=== PATIENT | male | born 1965 | race Caucasian/White ===

== ENCOUNTER 2016-07-07 14:05 | Emergency (ER) | payer MEDICAID ==
[~2016-07-07] VITALS: Ht 177.8 cm; Wt 75.0 kg
[~2016-07-07 14:05] MED LIST: ATENOLOL; LISINOPRIL; LORA2TAB95 PO
[2016-07-07 14:11] VITALS: BP 148/86
== END 2016-07-07 18:45 | disposition left against medical advice (07) ==
LOC: ER 14:27
DX: R10.9 Unspecified abdominal pain (principal); I10 Essential (primary) hypertension; Z87.19 Personal history of other diseases of the digestive system

== ENCOUNTER 2016-07-25 15:00 | Emergency (ER) | payer MEDICAID ==
[~2016-07-25] VITALS: Ht 175.3 cm; Wt 85.0 kg
[2016-07-25 15:01] VITALS: BP 119/73
== END 2016-07-25 19:31 | disposition left against medical advice (07) ==
LOC: ER 15:01
DX: R10.9 Unspecified abdominal pain (principal); Z53.21 Procedure and treatment not carried out due to patient leaving prior to being seen by health care provider

== ENCOUNTER 2016-08-28 11:05 | Emergency (ER) | payer MEDICAID ==
[~2016-08-28] VITALS: Ht 172.7 cm; Wt 75.0 kg
[2016-08-28] MEDS ORDERED: ONDANSETRON 4MG ODT PO ONE (11:45)
[2016-08-28 11:54] VITALS: BP 148/88
[2016-08-28] MEDS ORDERED: SODIUM CHLORIDE 0.9% 1,000 ML IV ONE (12:16)
[2016-08-28 13:20] LABS: BASOPHILS % 1.1 % (0.0-2.0); EOSINOPHILS % 2.1 % (0.0-5.0); HEMATOCRIT. 41.4 % (42.0-52.0); HEMOGLOBIN. 13.5 g/dL (14.0-18.0); LYMPHOCYTES % 29.1 % (20.0-50.0); MEAN CORPUSCULAR HEMOGLOBIN 29.3 pg (28.0-32.0); MEAN CORPUSCULAR HGB CONC 32.6 g/dL (31.0-37.0); MEAN CORPUSCULAR VOLUME 89.7 fL (80.0-94.0); MEAN PLATELET VOLUME 5.9 fl (7.4-10.4); MONOCYTES % 6.2 % (2.0-8.0); NEUTROPHILS % 61.5 % (40.0-76.0); PLATELET 219 x1000/uL (130-400); RED BLOOD CELL COUNT 4.61 mill/uL (4.7-6.1); RED CELL DISTRIBUTION WIDTH 16.7 % (11.6-14.6); WHITE BLOOD COUNT 6.3 x1000/uL (4.5-11.0)
[2016-08-28 13:28] LABS: PROTHROMBIN TIME 10.8 sec
[2016-08-28 13:32] LABS: ALANINE AMINOTRANSFERASE 27 IU/L (13-61); ALBUMIN 3.8 g/dL (3.4-5.0); ANION GAP 14; CALCIUM 8.5 mg/dL (8.5-10.1); CARBON DIOXIDE 25 mEq/L (21-32); CHLORIDE 108 mEq/L (98-107); ETHANOL BLOOD 279 mg/dL; INDEX HEMOLYSI 1 (1-3); INDEX ICTERIC 1 (1-4); INDEX LIPEMIC 1 (1-3); LIPASE 354 IU/L (73-393); UREA NITROGEN BLOOD 6 mg/dL (7-21); eGFR > 60 mL/min (>60)
[2016-08-28 13:35] LABS: ACETAMINOPHEN < 2 ug/mL (10-30)
[2016-08-28] MEDS ORDERED: ACETAMINOPHEN 500MG TABLET PO ONE (14:00)
== END 2016-08-28 14:44 | disposition home or self-care (01) ==
LOC: ER 11:13
DX: K86.0 Alcohol-induced chronic pancreatitis (principal); F10.129 Alcohol abuse with intoxication, unspecified; M79.641 Pain in right hand; Y90.8 Blood alcohol level of 240 mg/100 ml or more; I10 Essential (primary) hypertension
CPT/HCPCS: 36415; 73130; 80053; 80307; 83690; 85025; 85610; 96360; 99285; G0482; J7030; Q0162

== ENCOUNTER 2016-10-08 12:31 | Emergency (ER) | payer MEDICAID ==
[~2016-10-08] VITALS: Ht 177.8 cm; Wt 80.0 kg
[2016-10-08 15:00] VITALS: BP 142/84
== END 2016-10-08 15:00 | disposition left against medical advice (07) ==
LOC: ER 13:02
DX: F10.129 Alcohol abuse with intoxication, unspecified (principal)
CPT/HCPCS: 82962; 99283

== ENCOUNTER 2016-10-08 15:56 | Emergency (ER) | payer MEDICAID ==
[~2016-10-08] VITALS: Ht 180.3 cm; Wt 79.5 kg
[2016-10-08] MEDS ORDERED: KETOROLAC 60MG/2ML VIAL IM STA (22:19)
[2016-10-08 22:34] LABS: HEMATOCRIT. 35.3 % (42.0-52.0); HEMOGLOBIN. 11.6 g/dL (14.0-18.0); MEAN CORPUSCULAR HEMOGLOBIN 29.4 pg (28.0-32.0); MEAN CORPUSCULAR VOLUME 89.2 fL (80.0-94.0); MEAN PLATELET VOLUME 6.4 fl (7.4-10.4); PLATELET 170 x1000/uL (130-400); RED BLOOD CELL COUNT 3.95 mill/uL (4.7-6.1); RED CELL DISTRIBUTION WIDTH 15.4 % (11.6-14.6)
[2016-10-08 22:39] LABS: CHLORIDE 111 mEq/L (98-107)
[2016-10-08 22:41] LABS: CLARITY URINE CLOUDY (CLEAR); COLOR URINE YELLOW (YELLOW); GLUCOSE URINE NEGATIVE (NEGATIVE); KETONES URINE NEGATIVE (NEGATIVE); LEUKOCYTE ESTERASE URINE NEGATIVE (NEGATIVE); NITRITE URINE NEGATIVE (NEGATIVE); OCCULT BLOOD URINE NEGATIVE (NEGATIVE); PROTEIN URINE NEGATIVE (NEGATIVE); SPECIFIC GRAVITY URINE 1.007 (1.005-1.030); UROBILINOGEN URINE 0.2 E.U./dL (0.2-1.0)
[2016-10-08 22:49] LABS: CARBON DIOXIDE 23 mEq/L (21-32)
[2016-10-08 22:52] LABS: *AMPHETAMINES SCREEN URINE NEGATIVE (NEGATIVE); *BARBITURATES SCREEN URINE NEGATIVE (NEGATIVE); *BENZODIAZEPINES SCREEN URINE PRESUMTIVE POSITIVE (NEGATIVE); *COCAINE SCREEN URINE NEGATIVE (NEGATIVE); CANNABINOID URINE SCREEN NEGATIVE (NEGATIVE); METHADONE URINE SCREEN NEGATIVE (NEGATIVE); OPIATES URINE SCREEN NEGATIVE (NEGATIVE); PHENCYCLIDINE URINE SCREEN NEGATIVE (NEGATIVE)
[2016-10-08 22:53] LABS: ETHANOL BLOOD 346 mg/dL
[2016-10-08 23:19] LABS: PLATELET ESTIMATE NORMAL
[2016-10-09 03:27] VITALS: BP 115/73
== END 2016-10-09 03:57 | disposition home or self-care (01) ==
LOC: ER 15:56
DX: R51 Headache (principal); R47.81 Slurred speech; F10.129 Alcohol abuse with intoxication, unspecified; I10 Essential (primary) hypertension
CPT/HCPCS: 36415; 80053; 80305; 81001; 85025; 96372; 99284; G0482; J1885

== ENCOUNTER 2016-10-09 21:58 | Emergency (ER) | payer MEDICAID ==
[~2016-10-09] VITALS: Ht 175.3 cm; Wt 77.0 kg
[2016-10-09 22:01] VITALS: BP 115/78
== END 2016-10-10 01:52 | disposition left against medical advice (07) ==
LOC: ER 22:21
DX: R10.9 Unspecified abdominal pain (principal); F10.99 Alcohol use, unspecified with unspecified alcohol-induced disorder; Z53.21 Procedure and treatment not carried out due to patient leaving prior to being seen by health care provider

== ENCOUNTER 2016-10-10 04:16 | Emergency (ER) | payer MEDICAID ==
[~2016-10-10] VITALS: Ht 175.3 cm; Wt 77.0 kg
[2016-10-10] MEDS ORDERED: SODIUM CHLORIDE 0.9% 1,000 ML IV ONE (07:45)
[2016-10-10] MEDS ORDERED: ONDANSETRON HCL 4MG/2ML VIAL IV ONE (07:45)
[2016-10-10] MEDS ORDERED: LORAZEPAM 2MG/ML CPJ IV ONE (07:45)
[2016-10-10 07:52] LABS: HEMATOCRIT. 37.1 % (42.0-52.0); HEMOGLOBIN. 12.3 g/dL (14.0-18.0); MEAN CORPUSCULAR HEMOGLOBIN 29.5 pg (28.0-32.0); MEAN CORPUSCULAR VOLUME 88.7 fL (80.0-94.0); PLATELET 210 x1000/uL (130-400); RED BLOOD CELL COUNT 4.19 mill/uL (4.7-6.1); RED CELL DISTRIBUTION WIDTH 15.6 % (11.6-14.6)
[2016-10-10 07:57] LABS: CHLORIDE 108 mEq/L (98-107)
[2016-10-10 08:03] LABS: CARBON DIOXIDE 30 mEq/L (21-32); ETHANOL BLOOD 249 mg/dL
[2016-10-10 08:18] LABS: PLATELET ESTIMATE NORMAL
[2016-10-10] MEDS ORDERED: KETOROLAC 30MG/ML VIAL IV ONE (09:30)
[2016-10-10 12:00] LABS: CLARITY URINE CLEAR (CLEAR); COLOR URINE YELLOW (YELLOW); GLUCOSE URINE NEGATIVE (NEGATIVE); KETONES URINE NEGATIVE (NEGATIVE); LEUKOCYTE ESTERASE URINE NEGATIVE (NEGATIVE); NITRITE URINE NEGATIVE (NEGATIVE); OCCULT BLOOD URINE NEGATIVE (NEGATIVE); PROTEIN URINE NEGATIVE (NEGATIVE); SPECIFIC GRAVITY URINE 1.015 (1.005-1.030); UROBILINOGEN URINE 0.2 E.U./dL (0.2-1.0)
[2016-10-10 12:36] LABS: *AMPHETAMINES SCREEN URINE NEGATIVE (NEGATIVE); *BARBITURATES SCREEN URINE NEGATIVE (NEGATIVE); *BENZODIAZEPINES SCREEN URINE PRESUMTIVE POSITIVE (NEGATIVE); *COCAINE SCREEN URINE NEGATIVE (NEGATIVE); CANNABINOID URINE SCREEN NEGATIVE (NEGATIVE); METHADONE URINE SCREEN NEGATIVE (NEGATIVE); OPIATES URINE SCREEN NEGATIVE (NEGATIVE); PHENCYCLIDINE URINE SCREEN NEGATIVE (NEGATIVE)
[2016-10-10 12:45] VITALS: BP 142/79
[2016-10-10] MEDS ORDERED: KETOROLAC 30MG/ML VIAL IV NR (14:15)
[2016-10-10] MEDS ORDERED: FAMOTIDINE 20MG/2ML VIAL IV SCH (21:00)
== END 2016-10-10 13:00 | disposition home or self-care (01) ==
LOC: ER 07:18
DX: K70.0 Alcoholic fatty liver (principal); F10.239 Alcohol dependence with withdrawal, unspecified; I10 Essential (primary) hypertension; Z59.0 Homelessness
CPT/HCPCS: 36415; 76705; 80053; 80305; 81003; 83690; 85007; 85027; 96361; 96374; 99285; G0482; J1885; J2060; J7030; Z7610

== ENCOUNTER 2016-10-18 17:27 | Emergency (ER) | payer MEDICAID ==
[~2016-10-18] VITALS: Ht 177.8 cm; Wt 85.0 kg
[2016-10-18 17:28] VITALS: BP 140/87
== END 2016-10-18 21:55 | disposition left against medical advice (07) ==
LOC: ER 17:27
DX: R51 Headache (principal); Z53.21 Procedure and treatment not carried out due to patient leaving prior to being seen by health care provider

== ENCOUNTER 2016-10-28 12:56 | Emergency (ER) | payer MEDICAID ==
[~2016-10-28] VITALS: Ht 170.2 cm; Wt 70.0 kg
[2016-10-28 13:00] VITALS: BP 116/76
== END 2016-10-29 04:19 | disposition left against medical advice (07) ==
LOC: ER 18:08
DX: Z53.21 Procedure and treatment not carried out due to patient leaving prior to being seen by health care provider (principal)

== ENCOUNTER 2016-10-31 13:30 | Emergency (ER) | payer MEDICAID ==
[~2016-10-31] VITALS: Ht 177.8 cm; Wt 80.0 kg
[2016-10-31 13:46] VITALS: BP 135/87
== END 2016-10-31 19:57 | disposition left against medical advice (07) ==
LOC: ER 13:50
DX: R10.9 Unspecified abdominal pain (principal); Z53.21 Procedure and treatment not carried out due to patient leaving prior to being seen by health care provider

== ENCOUNTER 2016-11-27 16:27 | Emergency (ER) | payer MEDICAID ==
[~2016-11-27] VITALS: Ht 177.8 cm; Wt 80.0 kg
[2016-11-27] MEDS ORDERED: FAMOTIDINE 20MG/2ML VIAL IV STA (18:57)
[2016-11-27] MEDS ORDERED: SODIUM CHLORIDE 0.9% 1,000 ML IV ONE (18:57)
[2016-11-27 19:18] LABS: EOSINOPHILS % 1.2 % (0.0-5.0); HEMATOCRIT. 37.5 % (42.0-52.0); HEMOGLOBIN. 12.4 g/dL (14.0-18.0); LYMPHOCYTES % 41.5 % (20.0-50.0); MEAN CORPUSCULAR HEMOGLOBIN 29.9 pg (28.0-32.0); MEAN CORPUSCULAR VOLUME 90.7 fL (80.0-94.0); MEAN PLATELET VOLUME 6.3 fl (7.4-10.4); MONOCYTES % 14.7 % (2.0-8.0); NEUTROPHILS % 41.6 % (40.0-76.0); PLATELET 176 x1000/uL (130-400); RED BLOOD CELL COUNT 4.13 mill/uL (4.7-6.1); RED CELL DISTRIBUTION WIDTH 15.7 % (11.6-14.6)
[2016-11-27 19:25] LABS: PROTHROMBIN TIME 10.7 sec
[2016-11-27 19:27] LABS: CLARITY URINE CLEAR (CLEAR); COLOR URINE YELLOW (YELLOW); GLUCOSE URINE NEGATIVE (NEGATIVE); KETONES URINE NEGATIVE (NEGATIVE); LEUKOCYTE ESTERASE URINE NEGATIVE (NEGATIVE); NITRITE URINE NEGATIVE (NEGATIVE); OCCULT BLOOD URINE NEGATIVE (NEGATIVE); PROTEIN URINE NEGATIVE (NEGATIVE); SPECIFIC GRAVITY URINE 1.009 (1.005-1.030); UROBILINOGEN URINE 0.2 E.U./dL (0.2-1.0)
[2016-11-27 19:33] LABS: CARBON DIOXIDE 24 mEq/L (21-32); CHLORIDE 108 mEq/L (98-107); ETHANOL BLOOD 298 mg/dL
[2016-11-27] MEDS ORDERED: KETOROLAC 15MG/ML VIAL IV ONE (20:15)
[2016-11-27] MEDS ORDERED: CYANOCOBALAMIN 1000MCG/ML VIAL IM ONE (20:45)
[2016-11-28] MEDS ORDERED: DICYCLOMINE 10 MG/5 ML ORAL SYR PO STA (01:32)
[2016-11-28] MEDS ORDERED: MAGNESIUM/ALUMINUM HYDROXIDE/SIMETHICONE 30ML UDC PO STA (01:32)
[2016-11-28] MEDS ORDERED: VISCOUS LIDOCAINE 2% 15 ML UDC PO STA (01:32)
[2016-11-28] MEDS ORDERED: LORAZEPAM 2MG/ML CPJ IV ONE (01:45)
[2016-11-28 06:16] VITALS: BP 149/96
== END 2016-11-28 06:21 | disposition home or self-care (01) ==
LOC: ER 16:30
DX: K29.20 Alcoholic gastritis without bleeding (principal); F10.10 Alcohol abuse, uncomplicated; I10 Essential (primary) hypertension; Y90.8 Blood alcohol level of 240 mg/100 ml or more
CPT/HCPCS: 36415; 80053; 81003; 83690; 85025; 85610; 96361; 96372; 96374; 96375; 99284; G0482; J1885; J2060; J3420; J3490; J7030; Z7610

== ENCOUNTER 2017-01-27 13:36 | Emergency (ER) | payer MEDICAID ==
[~2017-01-27] VITALS: Ht 177.8 cm; Wt 80.0 kg
[2017-01-27 13:38] VITALS: BP 118/70
== END 2017-01-27 18:41 | disposition left against medical advice (07) ==
LOC: ER 13:43
DX: F10.10 Alcohol abuse, uncomplicated (principal); Z53.21 Procedure and treatment not carried out due to patient leaving prior to being seen by health care provider

== ENCOUNTER 2017-02-18 17:53 | Emergency (ER) | payer MEDICAID ==
[~2017-02-18] VITALS: Ht 180.3 cm; Wt 79.0 kg
[2017-02-18 17:55] VITALS: BP 125/85
== END 2017-02-18 20:34 | disposition left against medical advice (07) ==
LOC: ER 18:15
DX: Z53.21 Procedure and treatment not carried out due to patient leaving prior to being seen by health care provider (principal)

== ENCOUNTER 2017-03-21 10:34 | Emergency (ER) | payer MEDICAID ==
[~2017-03-21] VITALS: Ht 175.3 cm; Wt 75.0 kg
[2017-03-21] MEDS ORDERED: SODIUM CHLORIDE 0.9% 1,000 ML IV ONE (12:34)
[2017-03-21] MEDS ORDERED: ONDANSETRON HCL 4MG/2ML VIAL IV STA (12:34)
[2017-03-21] MEDS ORDERED: KETOROLAC 30MG/ML VIAL IV STA (12:34)
[2017-03-21 12:52] LABS: BASOPHILS % 0.8 % (0.0-2.0); HEMATOCRIT. 41.5 % (42.0-52.0); HEMOGLOBIN. 13.4 g/dL (14.0-18.0); LYMPHOCYTES % 32.6 % (20.0-50.0); MEAN CORPUSCULAR HEMOGLOBIN 30.4 pg (28.0-32.0); MEAN CORPUSCULAR VOLUME 94.4 fL (80.0-94.0); MONOCYTES % 11.7 % (2.0-8.0); NEUTROPHILS % 53.9 % (40.0-76.0); PLATELET 53 x1000/uL (130-400); RED CELL DISTRIBUTION WIDTH 15.3 % (11.6-14.6)
[2017-03-21 13:12] LABS: CARBON DIOXIDE 28 mEq/L (21-32); CHLORIDE 106 mEq/L (98-107)
[2017-03-21 13:25] LABS: ETHANOL BLOOD 321 mg/dL
[2017-03-21] MEDS ORDERED: IOHEXOL-300 100 ML BOTTLE ONE (14:48)
[2017-03-21 17:03] LABS: CLARITY URINE CLEAR (CLEAR); COLOR URINE YELLOW (YELLOW); GLUCOSE URINE NEGATIVE (NEGATIVE); KETONES URINE TRACE (NEGATIVE); LEUKOCYTE ESTERASE URINE NEGATIVE (NEGATIVE); NITRITE URINE NEGATIVE (NEGATIVE); OCCULT BLOOD URINE TRACE (NEGATIVE); PROTEIN URINE 2+ (NEGATIVE); SPECIFIC GRAVITY URINE 1.072 (1.005-1.030)
[2017-03-21] MEDS ORDERED: LORAZEPAM 1MG TABLET PO ONE (19:45)
[2017-03-21 23:42] VITALS: BP 124/71
== END 2017-03-21 23:45 | disposition home or self-care (01) ==
LOC: ER 10:42
DX: K85.90 Acute pancreatitis without necrosis or infection, unspecified (principal); R11.2 Nausea with vomiting, unspecified; R10.9 Unspecified abdominal pain; K76.0 Fatty (change of) liver, not elsewhere classified; F10.20 Alcohol dependence, uncomplicated; I10 Essential (primary) hypertension; Y90.8 Blood alcohol level of 240 mg/100 ml or more
CPT/HCPCS: 36415; 74177; 80053; 81001; 83690; 85025; 96374; 96375; 99285; G0482; J1885; J2405; J7030; Q9967; Z7610

== ENCOUNTER 2017-04-17 20:39 | Emergency (ER) | payer MEDICAID ==
[~2017-04-17] VITALS: Ht 182.9 cm; Wt 79.0 kg
[2017-04-18] MEDS ORDERED: KETOROLAC 30MG/ML VIAL IV ONE (00:45)
[2017-04-18] MEDS ORDERED: METOCLOPRAMIDE HCL 10MG/2ML VIAL IV ONE (00:45)
[2017-04-18] MEDS ORDERED: FOLIC ACID 1 MG, THIAMINE HCL 100 MG, MVI, ADULT NO.1 10 ML in SODIUM CHLORIDE 0.9% 1,0... IV ONE ×4 (01:00)
[2017-04-18 02:55] LABS: CLARITY URINE CLEAR (CLEAR); COLOR URINE YELLOW (YELLOW); KETONES URINE NEGATIVE (NEGATIVE); LEUKOCYTE ESTERASE URINE NEGATIVE (NEGATIVE); NITRITE URINE NEGATIVE (NEGATIVE); OCCULT BLOOD URINE NEGATIVE (NEGATIVE); PROTEIN URINE NEGATIVE (NEGATIVE); SPECIFIC GRAVITY URINE 1.011 (1.005-1.030); UROBILINOGEN URINE 0.2 E.U./dL (0.2-1.0)
[2017-04-18 03:04] LABS: *AMPHETAMINES SCREEN URINE NEGATIVE (NEGATIVE); *BARBITURATES SCREEN URINE NEGATIVE (NEGATIVE); *BENZODIAZEPINES SCREEN URINE NEGATIVE (NEGATIVE); *COCAINE SCREEN URINE NEGATIVE (NEGATIVE); CANNABINOID URINE SCREEN NEGATIVE (NEGATIVE); METHADONE URINE SCREEN NEGATIVE (NEGATIVE); OPIATES URINE SCREEN NEGATIVE (NEGATIVE); PHENCYCLIDINE URINE SCREEN NEGATIVE (NEGATIVE)
[2017-04-18 05:01] VITALS: BP 108/70
== END 2017-04-18 06:55 | disposition home or self-care (01) ==
LOC: ER 21:34
DX: F10.129 Alcohol abuse with intoxication, unspecified (principal); F17.210 Nicotine dependence, cigarettes, uncomplicated; Y90.8 Blood alcohol level of 240 mg/100 ml or more; Z87.19 Personal history of other diseases of the digestive system
CPT/HCPCS: 36415; 80305; 81003; 96365; 96375; 99284; G0482; J1885; J2765; J3411; J3490; Z7610; J7030

== ENCOUNTER 2017-04-25 19:42 | Emergency (ER) | payer MEDICAID ==
[~2017-04-25] VITALS: Ht 180.3 cm; Wt 80.0 kg
[2017-04-25] MEDS ORDERED: KETOROLAC 60MG/2ML VIAL IM ONE (20:45)
[2017-04-25] MEDS ORDERED: TETANUS, DIPHTHERIA, PERTUSSIS VAC/PF 0.5ML (>7YR OLD) IM ONE (20:45)
[2017-04-25 20:56] VITALS: BP 107/66
== END 2017-04-25 21:22 | disposition home or self-care (01) ==
LOC: ER 20:17
DX: F10.229 Alcohol dependence with intoxication, unspecified (principal); F10.239 Alcohol dependence with withdrawal, unspecified; Y90.9 Presence of alcohol in blood, level not specified; S50.812A Abrasion of left forearm, initial encounter; W17.89XA Other fall from one level to another, initial encounter; Y93.39 Activity, other involving climbing, rappelling and jumping off; Y92.522 Railway station as the place of occurrence of the external cause; I10 Essential (primary) hypertension; Z23 Encounter for immunization; Z87.19 Personal history of other diseases of the digestive system
CPT/HCPCS: 90471; 90715; 96372; 99284; J1885; Z7610

== ENCOUNTER 2017-04-25 21:37 | Emergency (ER) | payer MEDICAID ==
[~2017-04-25] VITALS: Ht 172.7 cm; Wt 83.0 kg
[2017-04-25 23:11] VITALS: BP 130/85
== END 2017-04-26 05:18 | disposition left against medical advice (07) ==
LOC: ER 04-26 01:01
DX: Z53.21 Procedure and treatment not carried out due to patient leaving prior to being seen by health care provider (principal)

== ENCOUNTER 2017-06-01 15:33 | Emergency (ER) | payer MEDICAID ==
[~2017-06-01] VITALS: Ht 177.8 cm; Wt 87.0 kg
[2017-06-01 15:40] VITALS: BP 128/66
== END 2017-06-01 19:20 | disposition left against medical advice (07) ==
LOC: ER 15:33
DX: R07.9 Chest pain, unspecified (principal); Z53.21 Procedure and treatment not carried out due to patient leaving prior to being seen by health care provider
CPT/HCPCS: 93005

== ENCOUNTER 2017-06-21 22:25 | Emergency (ER) | payer MEDICAID ==
[~2017-06-21] VITALS: Ht 167.6 cm; Wt 72.0 kg
[2017-06-22] MEDS ORDERED: ACETAMINOPHEN WITH CODEINE 300/30MG TABLET PO ONE (06:30)
[2017-06-22] MEDS ORDERED: ONDANSETRON 4MG ODT PO ONE (06:30)
[2017-06-22 06:52] LABS: BASOPHILS % 0.6 % (0.0-2.0); HEMATOCRIT. 37.3 % (42.0-52.0); HEMOGLOBIN. 12.1 g/dL (14.0-18.0); LYMPHOCYTES % 38.3 % (20.0-50.0); MEAN CORPUSCULAR HEMOGLOBIN 29.3 pg (28.0-32.0); MEAN CORPUSCULAR VOLUME 90.4 fL (80.0-94.0); MEAN PLATELET VOLUME 6.9 fl (7.4-10.4); MONOCYTES % 13.8 % (2.0-8.0); NEUTROPHILS % 46.3 % (40.0-76.0); PLATELET 60 x1000/uL (130-400); RED BLOOD CELL COUNT 4.12 mill/uL (4.7-6.1); RED CELL DISTRIBUTION WIDTH 14.4 % (11.6-14.6)
[2017-06-22 07:05] LABS: CHLORIDE 108 mEq/L (98-107); ETHANOL BLOOD 266 mg/dL
[2017-06-22 08:22] LABS: *AMPHETAMINES SCREEN URINE NEGATIVE (NEGATIVE); *BARBITURATES SCREEN URINE NEGATIVE (NEGATIVE); *BENZODIAZEPINES SCREEN URINE NEGATIVE (NEGATIVE); *COCAINE SCREEN URINE NEGATIVE (NEGATIVE); CANNABINOID URINE SCREEN NEGATIVE (NEGATIVE); METHADONE URINE SCREEN NEGATIVE (NEGATIVE); OPIATES URINE SCREEN NEGATIVE (NEGATIVE); PHENCYCLIDINE URINE SCREEN NEGATIVE (NEGATIVE)
[2017-06-22] MEDS ORDERED: IBUPROFEN 600MG TABLET PO ONE (08:45)
[2017-06-22 09:19] VITALS: BP 154/103
== END 2017-06-22 09:24 | disposition home or self-care (01) ==
LOC: ER 22:28
DX: S00.83XA Contusion of other part of head, initial encounter (principal); S40.011A Contusion of right shoulder, initial encounter; D61.818 Other pancytopenia; F10.10 Alcohol abuse, uncomplicated; Z79.899 Other long term (current) drug therapy; I10 Essential (primary) hypertension; W06.XXXA Fall from bed, initial encounter; Y93.89 Activity, other specified; Y92.89 Other specified places as the place of occurrence of the external cause; Y99.8 Other external cause status
CPT/HCPCS: 36415; 70450; 73030; 80053; 80305; 85025; 99285; G0482; Q0162; Z7610

== ENCOUNTER 2017-08-05 19:16 | Emergency (ER) | payer MEDICAID ==
[~2017-08-05] VITALS: Ht 175.3 cm; Wt 73.0 kg
[2017-08-05] MEDS ORDERED: FOLIC ACID 1 MG, THIAMINE HCL 100 MG, MVI, ADULT NO.1 10 ML in DEXTROSE 5% WATER 1,000 ML IV ONE ×4 (20:00)
[2017-08-05] MEDS ORDERED: ACETAMINOPHEN 325MG TABLET PO ONE (20:00)
[2017-08-06 00:15] VITALS: BP 138/88
== END 2017-08-06 00:15 | disposition home or self-care (01) ==
LOC: ER 19:16
DX: R51 Headache (principal); F10.129 Alcohol abuse with intoxication, unspecified; Y90.8 Blood alcohol level of 240 mg/100 ml or more; R25.1 Tremor, unspecified; M25.511 Pain in right shoulder
CPT/HCPCS: 36415; 96365; 96366; 99285; G0482; J3411; J3490; J7070; Z7610

== ENCOUNTER 2017-08-06 01:22 | Emergency (ER) | payer MEDICAID ==
[~2017-08-06] VITALS: Ht 180.3 cm; Wt 79.0 kg
[2017-08-06 01:45] VITALS: BP 141/88
[2017-08-06] MEDS ORDERED: IBUPROFEN 400MG TABLET PO ONE (01:45)
== END 2017-08-06 03:50 | disposition left against medical advice (07) ==
LOC: ER 01:22
DX: M25.511 Pain in right shoulder (principal); I10 Essential (primary) hypertension
CPT/HCPCS: 99282

== ENCOUNTER 2017-08-06 07:38 | Emergency (ER) | payer MEDICAID ==
[~2017-08-06] VITALS: Ht 180.3 cm; Wt 74.0 kg
[2017-08-06 07:54] VITALS: BP 146/99
== END 2017-08-06 08:07 | disposition left against medical advice (07) ==
LOC: ER 08:04
DX: Z53.21 Procedure and treatment not carried out due to patient leaving prior to being seen by health care provider (principal); I10 Essential (primary) hypertension; R56.9 Unspecified convulsions

== ENCOUNTER 2017-08-13 16:47 | Emergency (ER) | payer MEDICAID ==
[~2017-08-13] VITALS: Ht 177.8 cm; Wt 80.0 kg
[2017-08-13 18:55] LABS: CLARITY URINE CLEAR (CLEAR); COLOR URINE YELLOW (YELLOW); KETONES URINE NEGATIVE (NEGATIVE); LEUKOCYTE ESTERASE URINE NEGATIVE (NEGATIVE); NITRITE URINE NEGATIVE (NEGATIVE); OCCULT BLOOD URINE NEGATIVE (NEGATIVE); PROTEIN URINE NEGATIVE (NEGATIVE); SPECIFIC GRAVITY URINE 1.008 (1.005-1.030); UROBILINOGEN URINE 0.2 E.U./dL (0.2-1.0)
[2017-08-13 19:15] LABS: *AMPHETAMINES SCREEN URINE NEGATIVE (NEGATIVE); *BARBITURATES SCREEN URINE NEGATIVE (NEGATIVE); *BENZODIAZEPINES SCREEN URINE PRESUMTIVE POSITIVE (NEGATIVE); *COCAINE SCREEN URINE NEGATIVE (NEGATIVE); CANNABINOID URINE SCREEN NEGATIVE (NEGATIVE); METHADONE URINE SCREEN NEGATIVE (NEGATIVE); PHENCYCLIDINE URINE SCREEN NEGATIVE (NEGATIVE)
[2017-08-13 19:16] LABS: OPIATES URINE SCREEN NEGATIVE (NEGATIVE)
[2017-08-13 19:54] LABS: BASOPHILS % 0.3 % (0.0-2.0); EOSINOPHILS % 0.9 % (0.0-5.0); HEMATOCRIT. 40.2 % (42.0-52.0); HEMOGLOBIN. 13.4 g/dL (14.0-18.0); LYMPHOCYTES % 43.9 % (20.0-50.0); MEAN CORPUSCULAR HEMOGLOBIN 29.8 pg (28.0-32.0); MEAN CORPUSCULAR VOLUME 89.2 fL (80.0-94.0); MONOCYTES % 7.4 % (2.0-8.0); NEUTROPHILS % 47.5 % (40.0-76.0); RED BLOOD CELL COUNT 4.51 mill/uL (4.7-6.1); RED CELL DISTRIBUTION WIDTH 16.1 % (11.6-14.6)
[2017-08-13 19:58] LABS: CHLORIDE 109 mEq/L (98-107)
[2017-08-13 20:08] LABS: PLATELET 38 x1000/uL (130-400)
[2017-08-13 20:28] LABS: ETHANOL BLOOD 411 mg/dL
[2017-08-14 06:00] VITALS: BP 156/81
== END 2017-08-14 07:10 | disposition home or self-care (01) ==
LOC: ER 16:59
DX: F10.229 Alcohol dependence with intoxication, unspecified (principal); S09.90XA Unspecified injury of head, initial encounter; I67.82 Cerebral ischemia; F17.200 Nicotine dependence, unspecified, uncomplicated; Z59.0 Homelessness; R29.6 Repeated falls; I10 Essential (primary) hypertension; X58.XXXA Exposure to other specified factors, initial encounter; Y93.9 Activity, unspecified
CPT/HCPCS: 36415; 70450; 80053; 80305; 80307; 80329; 81003; 82962; 85025; 99285; G0482; Z7610

== ENCOUNTER 2017-10-19 11:42 | Emergency (ER) | payer MEDICAID ==
[~2017-10-19] VITALS: Ht 170.2 cm; Wt 75.0 kg
[2017-10-19] MEDS ORDERED: KETOROLAC 30MG/ML VIAL IV STA (14:17)
[2017-10-19] MEDS ORDERED: SODIUM CHLORIDE 0.9% 1,000 ML IV ONE (14:17)
[2017-10-19] MEDS ORDERED: CHLORDIAZEPOXIDE 25MG CAPSULE PO ONE (14:30)
[2017-10-19 14:55] LABS: HEMATOCRIT. 36.6 % (42.0-52.0); HEMOGLOBIN. 12.4 g/dL (14.0-18.0); MEAN CORPUSCULAR HEMOGLOBIN 31.6 pg (28.0-32.0); MEAN CORPUSCULAR VOLUME 93.5 fL (80.0-94.0); MEAN PLATELET VOLUME 7.1 fl (7.4-10.4); PLATELET 145 x1000/uL (130-400); RED BLOOD CELL COUNT 3.91 mill/uL (4.7-6.1); RED CELL DISTRIBUTION WIDTH 15.1 % (11.6-14.6)
[2017-10-19 15:01] LABS: CHLORIDE 106 mEq/L (98-107)
[2017-10-19 15:05] LABS: ETHANOL BLOOD 119 mg/dL
[2017-10-19 15:24] LABS: PLATELET ESTIMATE NORMAL
[2017-10-19 16:14] VITALS: BP 120/74
[2017-10-19 19:05] LABS: *AMPHETAMINES SCREEN URINE NEGATIVE (NEGATIVE); *BARBITURATES SCREEN URINE NEGATIVE (NEGATIVE); *BENZODIAZEPINES SCREEN URINE PRESUMTIVE POSITIVE (NEGATIVE); *COCAINE SCREEN URINE NEGATIVE (NEGATIVE); METHADONE URINE SCREEN NEGATIVE (NEGATIVE)
[2017-10-19 19:06] LABS: CANNABINOID URINE SCREEN NEGATIVE (NEGATIVE); OPIATES URINE SCREEN NEGATIVE (NEGATIVE); PHENCYCLIDINE URINE SCREEN NEGATIVE (NEGATIVE)
== END 2017-10-19 16:39 | disposition home or self-care (01) ==
LOC: ER 13:10
DX: T51.0X1A Toxic effect of ethanol, accidental (unintentional), initial encounter (principal); R07.89 Other chest pain; I10 Essential (primary) hypertension; R94.31 Abnormal electrocardiogram [ECG] [EKG]; Y90.5 Blood alcohol level of 100-119 mg/100 ml; Y92.018 Other place in single-family (private) house as the place of occurrence of the external cause
CPT/HCPCS: 36415; 71045; 80053; 80305; 84484; 85025; 93005; 96361; 96374; 99285; G0482; J1885; J7030

== ENCOUNTER 2017-10-25 12:09 | Emergency (ER) | payer MEDICAID ==
[~2017-10-25] VITALS: Ht 177.8 cm; Wt 80.0 kg
[2017-10-25 18:49] VITALS: BP 109/77
== END 2017-10-25 19:31 | disposition home or self-care (01) ==
LOC: ER 12:09
DX: F10.229 Alcohol dependence with intoxication, unspecified (principal); Y90.8 Blood alcohol level of 240 mg/100 ml or more; I10 Essential (primary) hypertension; Z91.19 Patient's noncompliance with other medical treatment and regimen; Z91.81 History of falling; Z78.1 Physical restraint status; Z87.19 Personal history of other diseases of the digestive system
CPT/HCPCS: 36415; 99283; G0482; Z7610

== ENCOUNTER 2017-11-05 18:43 | Emergency (ER) | payer MEDICAID ==
[~2017-11-05] VITALS: Ht 172.7 cm; Wt 70.0 kg
[2017-11-05 21:30] VITALS: BP 121/77
== END 2017-11-05 21:30 | disposition home or self-care (01) ==
LOC: ER 18:43
DX: F10.229 Alcohol dependence with intoxication, unspecified (principal); R41.82 Altered mental status, unspecified; I10 Essential (primary) hypertension; Y90.9 Presence of alcohol in blood, level not specified
CPT/HCPCS: 99283

== ENCOUNTER 2017-11-07 15:23 | Emergency (ER) | payer MEDICAID ==
[~2017-11-07] VITALS: Ht 180.3 cm; Wt 88.5 kg
[2017-11-07 15:55] VITALS: BP 135/78
== END 2017-11-07 16:34 | disposition left against medical advice (07) ==
LOC: ER 15:33
DX: R51 Headache (principal); Z53.21 Procedure and treatment not carried out due to patient leaving prior to being seen by health care provider

== ENCOUNTER 2017-11-11 11:12 | Emergency (ER) | payer MEDICAID ==
[~2017-11-11] VITALS: Ht 175.3 cm; Wt 85.0 kg
[2017-11-11 11:13] VITALS: BP 133/88
== END 2017-11-11 12:06 | disposition left against medical advice (07) ==
LOC: ER 11:21
DX: R07.89 Other chest pain (principal); Z53.21 Procedure and treatment not carried out due to patient leaving prior to being seen by health care provider
CPT/HCPCS: 93005; 99283

== ENCOUNTER 2017-11-11 18:05 | Emergency (ER) | payer MEDICAID ==
[~2017-11-11] VITALS: Ht 172.7 cm; Wt 87.0 kg
[2017-11-11] MEDS ORDERED: FAMOTIDINE 20MG/2ML VIAL IV STA (20:42)
[2017-11-11] MEDS ORDERED: SODIUM CHLORIDE 0.9% 1,000 ML IV ONE (20:42)
[2017-11-11] MEDS ORDERED: KETOROLAC 30MG/ML VIAL IV STA (20:42)
[2017-11-11] MEDS ORDERED: ONDANSETRON HCL 4MG/2ML VIAL IV STA (20:42)
[2017-11-11 21:42] LABS: CLARITY URINE CLEAR (CLEAR); COLOR URINE YELLOW (YELLOW); KETONES URINE NEGATIVE (NEGATIVE); LEUKOCYTE ESTERASE URINE NEGATIVE (NEGATIVE); NITRITE URINE NEGATIVE (NEGATIVE); OCCULT BLOOD URINE NEGATIVE (NEGATIVE); PROTEIN URINE NEGATIVE (NEGATIVE); SPECIFIC GRAVITY URINE 1.006 (1.005-1.030); UROBILINOGEN URINE 0.2 E.U./dL (0.2-1.0)
[2017-11-11 21:56] LABS: CHLORIDE 110 mEq/L (98-107)
[2017-11-11 22:02] LABS: *AMPHETAMINES SCREEN URINE NEGATIVE (NEGATIVE); *BARBITURATES SCREEN URINE NEGATIVE (NEGATIVE); *BENZODIAZEPINES SCREEN URINE PRESUMTIVE POSITIVE (NEGATIVE); *COCAINE SCREEN URINE NEGATIVE (NEGATIVE); METHADONE URINE SCREEN NEGATIVE (NEGATIVE)
[2017-11-11 22:03] LABS: CANNABINOID URINE SCREEN NEGATIVE (NEGATIVE); OPIATES URINE SCREEN NEGATIVE (NEGATIVE); PHENCYCLIDINE URINE SCREEN NEGATIVE (NEGATIVE)
[2017-11-11 22:17] LABS: ETHANOL BLOOD 385 mg/dL
[2017-11-11 22:39] LABS: BASOPHILS % 0.3 % (0.0-2.0); EOSINOPHILS % 2.7 % (0.0-5.0); HEMATOCRIT. 35.7 % (42.0-52.0); HEMOGLOBIN. 11.6 g/dL (14.0-18.0); LYMPHOCYTES % 43.1 % (20.0-50.0); MEAN CORPUSCULAR HEMOGLOBIN 30.1 pg (28.0-32.0); MEAN PLATELET VOLUME 6.3 fl (7.4-10.4); MONOCYTES % 9.4 % (2.0-8.0); NEUTROPHILS % 44.5 % (40.0-76.0); RED BLOOD CELL COUNT 3.84 mill/uL (4.7-6.1); RED CELL DISTRIBUTION WIDTH 14.3 % (11.6-14.6)
[2017-11-11 22:52] LABS: PLATELET 37 x1000/uL (130-400)
[2017-11-12 06:53] VITALS: BP 147/81
[2017-11-12] MEDS ORDERED: LORAZEPAM 2MG/ML CPJ IV ONE (07:15)
[2017-11-12] MEDS ORDERED: ACETAMINOPHEN 325MG TABLET PO ONE (07:15)
== END 2017-11-12 07:55 | disposition home or self-care (01) ==
LOC: ER 18:05
DX: R10.13 Epigastric pain (principal); F10.239 Alcohol dependence with withdrawal, unspecified; I10 Essential (primary) hypertension; D69.6 Thrombocytopenia, unspecified; R25.1 Tremor, unspecified; Z87.19 Personal history of other diseases of the digestive system; Z79.899 Other long term (current) drug therapy; Y90.8 Blood alcohol level of 240 mg/100 ml or more
CPT/HCPCS: 36415; 80053; 80305; 81003; 83690; 85025; 96361; 96374; 96375; 99284; G0482; J1885; J2060; J2405; J3490; J7030; Z7610

== ENCOUNTER 2017-11-30 10:51 | Emergency (ER) | payer MEDICAID ==
[~2017-11-30] VITALS: Ht 172.7 cm; Wt 78.0 kg
[2017-11-30] MEDS ORDERED: SODIUM CHLORIDE 0.9% 1,000 ML IV ONE (11:10)
[2017-11-30] MEDS ORDERED: ACETAMINOPHEN 325MG TABLET PO ONE (11:15)
[2017-11-30 11:46] LABS: CHLORIDE 105 mEq/L (98-107)
[2017-11-30 11:47] LABS: BASOPHILS % 0.5 % (0.0-2.0); EOSINOPHILS % 0.8 % (0.0-5.0); HEMATOCRIT. 35.7 % (42.0-52.0); HEMOGLOBIN. 11.8 g/dL (14.0-18.0); LYMPHOCYTES % 30.7 % (20.0-50.0); MEAN CORPUSCULAR HEMOGLOBIN 30.2 pg (28.0-32.0); MEAN CORPUSCULAR VOLUME 91.3 fL (80.0-94.0); MEAN PLATELET VOLUME 6.5 fl (7.4-10.4); MONOCYTES % 8.9 % (2.0-8.0); NEUTROPHILS % 59.1 % (40.0-76.0); RED BLOOD CELL COUNT 3.91 mill/uL (4.7-6.1); RED CELL DISTRIBUTION WIDTH 14.4 % (11.6-14.6)
[2017-11-30 12:15] LABS: ETHANOL BLOOD 387 mg/dL
[2017-11-30 13:15] VITALS: BP 130/78
[2017-12-01 09:16] LABS: PLATELET 50 x1000/uL (130-400)
== END 2017-11-30 14:49 | disposition home or self-care (01) ==
LOC: ER 11:00
DX: F10.129 Alcohol abuse with intoxication, unspecified (principal); Y90.8 Blood alcohol level of 240 mg/100 ml or more; K86.0 Alcohol-induced chronic pancreatitis; D69.6 Thrombocytopenia, unspecified; D64.9 Anemia, unspecified; I10 Essential (primary) hypertension
CPT/HCPCS: 36415; 70450; 80053; 83690; 85025; 99285; G0482; J7030; Z7610

== ENCOUNTER 2017-12-14 10:57 | Emergency (ER) | payer MEDICAID ==
[~2017-12-14] VITALS: Ht 172.7 cm; Wt 78.0 kg
[2017-12-14 10:59] VITALS: BP 120/80
== END 2017-12-14 14:08 | disposition left against medical advice (07) ==
LOC: ER 10:57
DX: Z53.21 Procedure and treatment not carried out due to patient leaving prior to being seen by health care provider (principal)

== ENCOUNTER 2018-01-13 14:02 | Emergency (ER) | payer MEDICAID ==
[~2018-01-13] VITALS: Ht 172.7 cm; Wt 75.0 kg
[2018-01-13 15:30] VITALS: BP 126/87
[2018-01-13 16:22] LABS: BASOPHILS % 0.5 % (0.0-2.0); EOSINOPHILS % 1.6 % (0.0-5.0); HEMATOCRIT. 39.8 % (42.0-52.0); LYMPHOCYTES % 35.6 % (20.0-50.0); MEAN CORPUSCULAR VOLUME 91.8 fL (80.0-94.0); MEAN PLATELET VOLUME 6.7 fl (7.4-10.4); NEUTROPHILS % 54.3 % (40.0-76.0); PLATELET 67 x1000/uL (130-400); RED BLOOD CELL COUNT 4.33 mill/uL (4.7-6.1); RED CELL DISTRIBUTION WIDTH 15.1 % (11.6-14.6)
[2018-01-13 16:26] LABS: CHLORIDE 110 mEq/L (98-107)
== END 2018-01-13 17:07 | disposition home or self-care (01) ==
LOC: ER 14:11
DX: R10.32 Left lower quadrant pain (principal); I10 Essential (primary) hypertension; Z79.899 Other long term (current) drug therapy
CPT/HCPCS: 36415; 80053; 83690; 85025; 99284

== ENCOUNTER 2018-01-15 12:56 | Emergency (ER) | payer MEDICAID ==
[~2018-01-15] VITALS: Ht 172.7 cm; Wt 78.0 kg
[2018-01-15 13:09] VITALS: BP 142/89
== END 2018-01-15 14:02 | disposition left against medical advice (07) ==
LOC: ER 13:05
DX: Z53.21 Procedure and treatment not carried out due to patient leaving prior to being seen by health care provider (principal)

== ENCOUNTER 2018-01-15 17:50 | Emergency (ER) | payer MEDICAID ==
[~2018-01-15] VITALS: Ht 172.7 cm; Wt 68.0 kg
[2018-01-15 21:38] VITALS: BP 122/77
== END 2018-01-15 23:00 | disposition home or self-care (01) ==
LOC: ER 17:50
DX: T51.0X1A Toxic effect of ethanol, accidental (unintentional), initial encounter (principal); R41.82 Altered mental status, unspecified; I10 Essential (primary) hypertension; Y90.8 Blood alcohol level of 240 mg/100 ml or more; Y92.488 Other paved roadways as the place of occurrence of the external cause
CPT/HCPCS: 36415; 99283; G0482

== ENCOUNTER 2018-02-01 19:52 | Emergency (ER) | payer MEDICAID ==
[~2018-02-01] VITALS: Ht 177.8 cm; Wt 81.0 kg
[2018-02-02 00:19] LABS: HEMATOCRIT. 37.9 % (42.0-52.0); HEMOGLOBIN. 12.5 g/dL (14.0-18.0); MEAN CORPUSCULAR HEMOGLOBIN 30.1 pg (28.0-32.0); MEAN CORPUSCULAR VOLUME 91.4 fL (80.0-94.0); MEAN PLATELET VOLUME 6.5 fl (7.4-10.4); PLATELET 194 x1000/uL (130-400); RED BLOOD CELL COUNT 4.14 mill/uL (4.7-6.1); RED CELL DISTRIBUTION WIDTH 15.2 % (11.6-14.6)
[2018-02-02 00:27] LABS: CHLORIDE 106 mEq/L (98-107)
[2018-02-02 00:28] LABS: PROTHROMBIN TIME 10.3 sec (9.1-11.1)
[2018-02-02 03:04] LABS: PLATELET ESTIMATE NORMAL
[2018-02-02 04:40] VITALS: BP 119/71
[2018-02-26] MEDS ORDERED: ACET-2708 PO (10:06)
[2018-02-26] MEDS ORDERED: PROT40 PO (10:06)
[2018-02-26] MEDS ORDERED: SUCR1TAB30 MT (10:06)
[2018-02-26] MEDS ORDERED: AMLO10TA80 MT (10:06)
[2018-02-26] MEDS ORDERED: FAMO40TA70 MT (10:06)
== END 2018-02-02 04:45 | disposition home or self-care (01) ==
LOC: ER 19:52
DX: K85.90 Acute pancreatitis without necrosis or infection, unspecified (principal); I10 Essential (primary) hypertension; Z79.899 Other long term (current) drug therapy
CPT/HCPCS: 36415; 99284

== ENCOUNTER 2018-03-16 05:21 | Emergency (ER) | payer MEDICAID, OTHER ==
[~2018-03-16] VITALS: Ht 177.8 cm; Wt 68.0 kg
[~2018-03-16 05:21] MED LIST changes: +ACET-2708 PO; -ATENOLOL; -LISINOPRIL; +PROT40 PO; +SUCR1TAB30 MT
[2018-03-16 05:41] VITALS: BP 149/60
[2018-03-16] MEDS ORDERED: LORAZEPAM 1MG TABLET PO ONE (06:30)
== END 2018-03-16 07:14 | disposition home or self-care (01) ==
LOC: ER 05:21
DX: F10.239 Alcohol dependence with withdrawal, unspecified (principal); Y90.9 Presence of alcohol in blood, level not specified
CPT/HCPCS: 99283

== ENCOUNTER 2018-03-21 14:10 | Emergency (ER) | payer MEDICAID ==
[~2018-03-21] VITALS: Ht 182.9 cm; Wt 75.0 kg
[2018-03-21] MEDS ORDERED: FOLIC ACID 1 MG, THIAMINE HCL 100 MG, MVI, ADULT NO.1 10 ML in DEXTROSE 5% WATER 1,000 ML IV ONE ×4 (14:45)
[2018-03-21 15:17] LABS: CHLORIDE 108 mEq/L (98-107)
[2018-03-21 15:18] LABS: BASOPHILS % 0.3 % (0.0-2.0); EOSINOPHILS % 0.4 % (0.0-5.0); HEMATOCRIT. 36.6 % (42.0-52.0); HEMOGLOBIN. 12.1 g/dL (14.0-18.0); LYMPHOCYTES % 37.8 % (20.0-50.0); MEAN CORPUSCULAR HEMOGLOBIN 29.6 pg (28.0-32.0); MEAN CORPUSCULAR VOLUME 89.5 fL (80.0-94.0); MEAN PLATELET VOLUME 7.2 fl (7.4-10.4); MONOCYTES % 10.2 % (2.0-8.0); NEUTROPHILS % 51.3 % (40.0-76.0); RED BLOOD CELL COUNT 4.09 mill/uL (4.7-6.1); RED CELL DISTRIBUTION WIDTH 16.4 % (11.6-14.6)
[2018-03-21 15:29] LABS: ETHANOL BLOOD 451 mg/dL
[2018-03-21 15:36] LABS: PLATELET 47 x1000/uL (130-400)
[2018-03-21 15:53] LABS: PLATELET ESTIMATE MARKEDLY DECREASED
[2018-03-21] MEDS ORDERED: ONDANSETRON HCL 4MG/2ML INJ IV ONE (17:45)
[2018-03-21 21:40] LABS: *AMPHETAMINES SCREEN URINE NEGATIVE (NEGATIVE); *BARBITURATES SCREEN URINE NEGATIVE (NEGATIVE); *BENZODIAZEPINES SCREEN URINE PRESUMTIVE POSITIVE (NEGATIVE); *COCAINE SCREEN URINE NEGATIVE (NEGATIVE); METHADONE URINE SCREEN NEGATIVE (NEGATIVE)
[2018-03-21 21:41] LABS: CANNABINOID URINE SCREEN NEGATIVE (NEGATIVE); OPIATES URINE SCREEN NEGATIVE (NEGATIVE); PHENCYCLIDINE URINE SCREEN NEGATIVE (NEGATIVE)
[2018-03-21] MEDS ORDERED: LORAZEPAM 2MG/ML CPJ IV ONE (22:30)
[2018-03-21] MEDS ORDERED: IBUPROFEN 600MG TABLET PO ONE (22:30)
[2018-03-22 01:34] VITALS: BP 148/80
== END 2018-03-22 01:37 | disposition home or self-care (01) ==
LOC: ER 14:10
DX: T51.91XA Toxic effect of unspecified alcohol, accidental (unintentional), initial encounter (principal); F10.129 Alcohol abuse with intoxication, unspecified; Y90.8 Blood alcohol level of 240 mg/100 ml or more; Y92.9 Unspecified place or not applicable; D64.9 Anemia, unspecified; D47.3 Essential (hemorrhagic) thrombocythemia
CPT/HCPCS: 36415; 70450; 71045; 80048; 80305; 80307; 80329; 85025; 93005; 96365; 96375; 99284; G0482; J2060; J2405; J3411; J3490; J7070

== ENCOUNTER 2018-05-03 07:24 | Emergency (ER) | payer MEDICAID ==
[~2018-05-03] VITALS: Ht 165.1 cm; Wt 74.0 kg
[2018-05-03] MEDS ORDERED: ACETAMINOPHEN 325MG TABLET PO STA (07:53)
[2018-05-03] MEDS ORDERED: SODIUM CHLORIDE 0.9% 1,000 ML IV ONE (07:53)
[2018-05-03 08:32] LABS: BASOPHILS % 0.2 % (0.0-2.0); CHLORIDE 108 mEq/L (98-107); EOSINOPHILS % 0.7 % (0.0-5.0); HEMATOCRIT. 40.1 % (42.0-52.0); HEMOGLOBIN. 13.1 g/dL (14.0-18.0); LYMPHOCYTES % 22.6 % (20.0-50.0); MEAN CORPUSCULAR HEMOGLOBIN 29.1 pg (28.0-32.0); MEAN CORPUSCULAR VOLUME 89.1 fL (80.0-94.0); MEAN PLATELET VOLUME 6.2 fl (7.4-10.4); MONOCYTES % 8.9 % (2.0-8.0); NEUTROPHILS % 67.6 % (40.0-76.0); PLATELET 141 x1000/uL (130-400); RED CELL DISTRIBUTION WIDTH 15.9 % (11.6-14.6)
[2018-05-03 09:00] LABS: ETHANOL BLOOD 413 mg/dL
[2018-05-03 12:45] VITALS: BP 114/64
== END 2018-05-03 13:00 | disposition home or self-care (01) ==
LOC: ER 07:24
DX: F10.129 Alcohol abuse with intoxication, unspecified (principal); K86.0 Alcohol-induced chronic pancreatitis; Y90.8 Blood alcohol level of 240 mg/100 ml or more
CPT/HCPCS: 36415; 71045; 73030; 80053; 83690; 85025; 93005; 96360; 99284; G0482; J7030

== ENCOUNTER 2018-05-26 12:12 | Emergency (ER) | payer MEDICAID ==
[~2018-05-26] VITALS: Ht 172.7 cm; Wt 80.0 kg
[2018-05-26 12:15] VITALS: BP 156/78
== END 2018-05-26 17:08 | disposition left against medical advice (07) ==
LOC: ER 12:29
DX: Z53.21 Procedure and treatment not carried out due to patient leaving prior to being seen by health care provider (principal); I10 Essential (primary) hypertension

== ENCOUNTER 2018-07-13 14:03 | Emergency (ER) | payer MEDICAID ==
[~2018-07-13] VITALS: Ht 180.3 cm; Wt 79.0 kg
[2018-07-13 15:57] VITALS: BP 127/81
== END 2018-07-13 18:44 | disposition left against medical advice (07) ==
LOC: ER 14:03
DX: M54.9 Dorsalgia, unspecified (principal); Z53.21 Procedure and treatment not carried out due to patient leaving prior to being seen by health care provider

== ENCOUNTER 2018-07-14 15:56 | Emergency (ER) | payer MEDICAID ==
[~2018-07-14] VITALS: Ht 175.3 cm; Wt 80.0 kg
[2018-07-15] MEDS ORDERED: IBUPROFEN 600MG TABLET PO STA (00:06)
[2018-07-15 07:30] VITALS: BP 138/79
== END 2018-07-15 09:01 | disposition left against medical advice (07) ==
LOC: ER 15:56
DX: T51.0X1A Toxic effect of ethanol, accidental (unintentional), initial encounter (principal); S43.402A Unspecified sprain of left shoulder joint, initial encounter; I10 Essential (primary) hypertension; Z59.0 Homelessness; Z79.899 Other long term (current) drug therapy; X58.XXXA Exposure to other specified factors, initial encounter; Y93.H2 Activity, gardening and landscaping; Y92.89 Other specified places as the place of occurrence of the external cause; Y99.8 Other external cause status
CPT/HCPCS: 36415; 80320; 99283; G0480

== ENCOUNTER 2018-07-21 14:04 | Emergency (ER) | payer MEDICAID ==
[~2018-07-21] VITALS: Ht 177.8 cm; Wt 72.0 kg
[2018-07-21 14:07] VITALS: BP 130/82
== END 2018-07-21 15:35 | disposition left against medical advice (07) ==
LOC: ER 14:04
DX: Z53.21 Procedure and treatment not carried out due to patient leaving prior to being seen by health care provider (principal)

== ENCOUNTER 2018-07-21 18:46 | Emergency (ER) | payer MEDICAID ==
[~2018-07-21] VITALS: Ht 167.6 cm; Wt 73.0 kg
[2018-07-21] MEDS ORDERED: KETOROLAC 30MG/ML VIAL IV STA (22:01)
[2018-07-21] MEDS ORDERED: SODIUM CHLORIDE 0.9% 1,000 ML IV ONE (22:01)
[2018-07-21 23:03] LABS: BASOPHILS % 0.3 % (0.0-2.0); EOSINOPHILS % 1.8 % (0.0-5.0); HEMATOCRIT. 35.9 % (42.0-52.0); HEMOGLOBIN. 11.6 g/dL (14.0-18.0); LYMPHOCYTES % 39.4 % (20.0-50.0); MEAN CORPUSCULAR VOLUME 86.7 fL (80.0-94.0); MEAN PLATELET VOLUME 7.4 fl (7.4-10.4); MONOCYTES % 9.3 % (2.0-8.0); NEUTROPHILS % 49.2 % (40.0-76.0); PLATELET 81 x1000/uL (130-400); RED BLOOD CELL COUNT 4.14 mill/uL (4.7-6.1); RED CELL DISTRIBUTION WIDTH 16.5 % (11.6-14.6)
[2018-07-21 23:07] LABS: CHLORIDE 109 mEq/L (98-107)
[2018-07-21 23:19] LABS: ETHANOL BLOOD 315 mg/dL
[2018-07-21 23:22] LABS: INR 1.1; PARTIAL THROMBOPLASTIN TIME 27.3 sec (23.4-31.0)
[2018-07-22 01:50] LABS: CLARITY URINE CLEAR (CLEAR); COLOR URINE YELLOW (YELLOW); KETONES URINE NEGATIVE (NEGATIVE); LEUKOCYTE ESTERASE URINE NEGATIVE (NEGATIVE); NITRITE URINE NEGATIVE (NEGATIVE); OCCULT BLOOD URINE NEGATIVE (NEGATIVE); PROTEIN URINE NEGATIVE (NEGATIVE); SPECIFIC GRAVITY URINE 1.009 (1.005-1.030); UROBILINOGEN URINE 0.2 E.U./dL (0.2-1.0)
[2018-07-22 01:59] LABS: *AMPHETAMINES SCREEN URINE NEGATIVE (NEGATIVE); *BARBITURATES SCREEN URINE NEGATIVE (NEGATIVE); *BENZODIAZEPINES SCREEN URINE PRESUMTIVE POSITIVE (NEGATIVE); CANNABINOID URINE SCREEN NEGATIVE (NEGATIVE); OPIATES URINE SCREEN NEGATIVE (NEGATIVE); PHENCYCLIDINE URINE SCREEN NEGATIVE (NEGATIVE)
[2018-07-22 02:00] VITALS: BP 118/68
[2018-07-22 02:00] LABS: *COCAINE SCREEN URINE NEGATIVE (NEGATIVE); METHADONE URINE SCREEN NEGATIVE (NEGATIVE)
== END 2018-07-22 03:17 | disposition home or self-care (01) ==
LOC: ER 18:46
DX: F10.229 Alcohol dependence with intoxication, unspecified (principal); R10.13 Epigastric pain; M25.512 Pain in left shoulder; I10 Essential (primary) hypertension; F17.200 Nicotine dependence, unspecified, uncomplicated; Z79.899 Other long term (current) drug therapy; Y90.8 Blood alcohol level of 240 mg/100 ml or more
CPT/HCPCS: 36415; 71045; 73030; 74176; 80053; 80305; 80320; 81003; 83690; 84484; 85025; 85610; 85730; 93005; 96374; 99284; J1885; J7030; G0480

== ENCOUNTER 2018-07-25 21:01 | Emergency (ER) | payer MEDICAID ==
[~2018-07-25] VITALS: Ht 177.8 cm; Wt 79.0 kg
[2018-07-25 21:28] VITALS: BP 150/88
== END 2018-07-25 23:00 | disposition left against medical advice (07) ==
LOC: ER 21:01
DX: Z53.21 Procedure and treatment not carried out due to patient leaving prior to being seen by health care provider (principal)

== ENCOUNTER 2018-07-26 10:56 | Emergency (ER) | payer MEDICAID ==
[~2018-07-26] VITALS: Ht 180.3 cm; Wt 79.0 kg
[2018-07-26] MEDS ORDERED: SODIUM CHLORIDE 0.9% 1,000 ML IV ONE (11:14)
[2018-07-26 12:34] LABS: BASOPHILS % 0.3 % (0.0-2.0); HEMATOCRIT. 31.2 % (42.0-52.0); LYMPHOCYTES % 41.1 % (20.0-50.0); MEAN CORPUSCULAR HEMOGLOBIN 27.7 pg (28.0-32.0); MEAN CORPUSCULAR VOLUME 86.6 fL (80.0-94.0); MEAN PLATELET VOLUME 6.7 fl (7.4-10.4); MONOCYTES % 13.1 % (2.0-8.0); NEUTROPHILS % 44.5 % (40.0-76.0); RED BLOOD CELL COUNT 3.61 mill/uL (4.7-6.1); RED CELL DISTRIBUTION WIDTH 16.7 % (11.6-14.6)
[2018-07-26 12:38] LABS: CHLORIDE 119 mEq/L (98-107)
[2018-07-26 12:45] LABS: PLATELET 45 x1000/uL (130-400)
[2018-07-26] MEDS ORDERED: POTASSIUM CHLORIDE 20MEQ TABLET SR PO ONE (12:45)
[2018-07-26 12:54] LABS: ETHANOL BLOOD 379 mg/dL
[2018-07-26 13:22] LABS: PLATELET ESTIMATE MARKEDLY DECREASED
[2018-07-26 13:43] LABS: *AMPHETAMINES SCREEN URINE NEGATIVE (NEGATIVE); *BARBITURATES SCREEN URINE NEGATIVE (NEGATIVE); *BENZODIAZEPINES SCREEN URINE PRESUMTIVE POSITIVE (NEGATIVE)
[2018-07-26 13:44] LABS: *COCAINE SCREEN URINE NEGATIVE (NEGATIVE); CANNABINOID URINE SCREEN NEGATIVE (NEGATIVE); METHADONE URINE SCREEN NEGATIVE (NEGATIVE); OPIATES URINE SCREEN NEGATIVE (NEGATIVE); PHENCYCLIDINE URINE SCREEN NEGATIVE (NEGATIVE)
[2018-07-26 14:35] VITALS: BP 130/76
== END 2018-07-26 15:46 | disposition home or self-care (01) ==
LOC: ER 10:56
DX: F10.129 Alcohol abuse with intoxication, unspecified (principal); Y90.8 Blood alcohol level of 240 mg/100 ml or more; D61.818 Other pancytopenia
CPT/HCPCS: 36415; 80053; 80305; 80320; 85025; 99283; J7030; G0480

== ENCOUNTER 2018-07-31 15:36 | Emergency (ER) | payer MEDICAID ==
[~2018-07-31] VITALS: Ht 172.7 cm; Wt 73.0 kg
[2018-07-31 15:41] VITALS: BP 128/74
== END 2018-07-31 20:39 | disposition left against medical advice (07) ==
LOC: ER 15:36
DX: R10.9 Unspecified abdominal pain (principal); Z53.21 Procedure and treatment not carried out due to patient leaving prior to being seen by health care provider

== ENCOUNTER 2018-08-14 13:17 | Emergency (ER) | payer MEDICAID ==
[~2018-08-14] VITALS: Ht 172.7 cm; Wt 82.0 kg
[2018-08-14 13:38] VITALS: BP 145/95
== END 2018-08-14 17:29 | disposition left against medical advice (07) ==
LOC: ER 13:25
DX: R51 Headache (principal); Z53.21 Procedure and treatment not carried out due to patient leaving prior to being seen by health care provider

== ENCOUNTER 2018-08-15 22:58 | Inpatient (IN) | payer OTHER, MEDICAID ==
[~2018-08-15] VITALS: Ht 180.3 cm; Wt 78.9 kg
[2018-08-15] MEDS ORDERED: ONDANSETRON HCL 4MG/2ML INJ IV STA (23:42)
[2018-08-15] MEDS ORDERED: SODIUM CHLORIDE 0.9% 1,000 ML IV ONE (23:42)
[2018-08-15] MEDS ORDERED: MORPHINE SULFATE 4 MG/ML CPJ (NOT FOR IM USE) IV STA (23:42)
[2018-08-16 00:11] LABS: HEMATOCRIT. 36.5 % (42.0-52.0); HEMOGLOBIN. 11.9 g/dL (14.0-18.0); MEAN CORPUSCULAR HEMOGLOBIN 28.1 pg (28.0-32.0); MEAN CORPUSCULAR VOLUME 86.6 fL (80.0-94.0); MEAN PLATELET VOLUME 6.7 fl (7.4-10.4); PLATELET 56 x1000/uL (130-400); RED BLOOD CELL COUNT 4.22 mill/uL (4.7-6.1); RED CELL DISTRIBUTION WIDTH 17.5 % (11.6-14.6)
[2018-08-16 00:17] LABS: CHLORIDE 106 mEq/L (98-107)
[2018-08-16 00:20] LABS: PROTHROMBIN TIME 10.5 sec (9.6-11.0)
[2018-08-16 00:45] LABS: CLARITY URINE CLEAR (CLEAR); COLOR URINE YELLOW (YELLOW); KETONES URINE NEGATIVE (NEGATIVE); LEUKOCYTE ESTERASE URINE NEGATIVE (NEGATIVE); NITRITE URINE NEGATIVE (NEGATIVE); OCCULT BLOOD URINE NEGATIVE (NEGATIVE); PH URINE 5.5 (4.5-8.0); PROTEIN URINE NEGATIVE (NEGATIVE); SPECIFIC GRAVITY URINE 1.004 (1.005-1.030); UROBILINOGEN URINE 0.2 E.U./dL (0.2-1.0)
[2018-08-16 00:52] LABS: ETHANOL BLOOD 383 mg/dL
[2018-08-16 00:58] LABS: *AMPHETAMINES SCREEN URINE NEGATIVE (NEGATIVE); *BENZODIAZEPINES SCREEN URINE NEGATIVE (NEGATIVE); *COCAINE SCREEN URINE NEGATIVE (NEGATIVE)
[2018-08-16 00:59] LABS: CANNABINOID URINE SCREEN NEGATIVE (NEGATIVE); METHADONE URINE SCREEN NEGATIVE (NEGATIVE); OPIATES URINE SCREEN NEGATIVE (NEGATIVE); PHENCYCLIDINE URINE SCREEN NEGATIVE (NEGATIVE)
[2018-08-16 01:00] LABS: *BARBITURATES SCREEN URINE NEGATIVE (NEGATIVE)
[2018-08-16 01:02] LABS: PLATELET ESTIMATE MARKEDLY DECREASED
[2018-08-16] MEDS ORDERED: CHLORDIAZEPOXIDE 25MG CAPSULE PO ONE ×2 (03:00→08:45)
[2018-08-16] MEDS ORDERED: LORAZEPAM 2MG/ML CPJ IV ONE (08:45)
[2018-08-16] MEDS ORDERED: ONDANSETRON HCL 4MG/2ML INJ IV PRN (12:00)
[2018-08-16] MEDS ORDERED: HYDROMORPHONE HCL/PF 2MG/ML CPJ IV PRN (12:00)
[2018-08-16] MEDS ORDERED: ACET5SOL2 PO (13:05)
[2018-08-16] MEDS ORDERED: B50 MT (13:05)
[2018-08-16] MEDS: PANTOPRAZOLE SODIUM 40 MG/VIAL IV SCH (13:54)
[2018-08-16] MEDS: LORAZEPAM 2MG/ML CPJ IV PRN ×3 (13:55→22:18)
[2018-08-16] MEDS ORDERED: DEXT 5%/0.45% NACL 1000ML 1,000 ML IV SCH (14:00)
[2018-08-16 14:08] VITALS: BP 158/100
[2018-08-16] MEDS ORDERED: CLONIDINE 0.1MG TABLET PO PRN (15:30)
[2018-08-16] MEDS: AMLODIPINE 10MG TABLET PO SCH (15:46)
[2018-08-16 16:43] VITALS: BP 170/93
[2018-08-16] MEDS: FOLIC ACID 1 MG, THIAMINE HCL 100 MG, MVI, ADULT NO.1 10 ML in DEXTROSE 5% WATER 1,000 ML IV SCH ×4 (17:42)
[2018-08-16] MEDS: IBUPROFEN 800MG TABLET PO PRN (18:01)
[2018-08-16 20:00] VITALS: BP 148/89
[2018-08-17] VITALS: BP 118/80
[2018-08-17 04:00] VITALS: BP 148/86
[2018-08-17] MEDS: IBUPROFEN 800MG TABLET PO PRN ×2 (04:39→16:21)
[2018-08-17 07:00] LABS: BASOPHILS % 0.4 % (0.0-2.0); EOSINOPHILS % 1.1 % (0.0-5.0); HEMATOCRIT. 39.9 % (42.0-52.0); HEMOGLOBIN. 13.1 g/dL (14.0-18.0); LYMPHOCYTES % 20.1 % (20.0-50.0); MEAN CORPUSCULAR HEMOGLOBIN 28.2 pg (28.0-32.0); MEAN CORPUSCULAR VOLUME 85.9 fL (80.0-94.0); MEAN PLATELET VOLUME 7.1 fl (7.4-10.4); MONOCYTES % 12.8 % (2.0-8.0); NEUTROPHILS % 65.6 % (40.0-76.0); PLATELET 57 x1000/uL (130-400); RED BLOOD CELL COUNT 4.65 mill/uL (4.7-6.1); RED CELL DISTRIBUTION WIDTH 17.6 % (11.6-14.6)
[2018-08-17 07:08] LABS: CHLORIDE 98 mEq/L (98-107)
[2018-08-17 08:00] VITALS: BP 135/91
[2018-08-17] MEDS: PANTOPRAZOLE SODIUM 40 MG/VIAL IV SCH (09:02)
[2018-08-17] MEDS: FOLIC ACID 1 MG, THIAMINE HCL 100 MG, MVI, ADULT NO.1 10 ML in DEXTROSE 5% WATER 1,000 ML IV SCH ×4 (09:03)
[2018-08-17] MEDS: LORAZEPAM 2MG/ML CPJ IV PRN ×2 (09:04→23:16)
[2018-08-17] MEDS: AMLODIPINE 10MG TABLET PO SCH (09:05)
[2018-08-17] MEDS ORDERED: POTASSIUM CHLORIDE 20MEQ TABLET SR PO NR (09:30)
[2018-08-17] MEDS: ACETAMINOPHEN 325MG TABLET PO PRN ×2 (10:43→23:09)
[2018-08-17 12:00] VITALS: BP 129/77
[2018-08-17] MEDS: CHLORDIAZEPOXIDE 25MG CAPSULE PO PRN (15:10)
[2018-08-17 20:00] VITALS: BP 139/86
[2018-08-18] VITALS: BP 116/79
[2018-08-18] MEDS: FOLIC ACID 1 MG, THIAMINE HCL 100 MG, MVI, ADULT NO.1 10 ML in DEXTROSE 5% WATER 1,000 ML IV SCH ×4 (02:18)
[2018-08-18 03:58] VITALS: BP 123/73
[2018-08-18 07:06] LABS: BASOPHILS % 0.3 % (0.0-2.0); EOSINOPHILS % 1.1 % (0.0-5.0); HEMATOCRIT. 39.3 % (42.0-52.0); HEMOGLOBIN. 12.9 g/dL (14.0-18.0); LYMPHOCYTES % 22.2 % (20.0-50.0); MEAN CORPUSCULAR HEMOGLOBIN 28.2 pg (28.0-32.0); MEAN CORPUSCULAR VOLUME 85.9 fL (80.0-94.0); MEAN PLATELET VOLUME 7.4 fl (7.4-10.4); MONOCYTES % 11.6 % (2.0-8.0); NEUTROPHILS % 64.8 % (40.0-76.0); PLATELET 66 x1000/uL (130-400); RED BLOOD CELL COUNT 4.58 mill/uL (4.7-6.1); RED CELL DISTRIBUTION WIDTH 17.2 % (11.6-14.6)
[2018-08-18 07:25] LABS: CHLORIDE 100 mEq/L (98-107)
[2018-08-18 08:00] VITALS: BP 110/60
[2018-08-18] MEDS: AMLODIPINE 10MG TABLET PO SCH (09:00)
[2018-08-18] MEDS: PANTOPRAZOLE SODIUM 40 MG/VIAL IV SCH (09:16)
[2018-08-18] MEDS: IBUPROFEN 800MG TABLET PO PRN ×2 (10:10→21:31)
[2018-08-18] MEDS ORDERED: POTASSIUM CHLORIDE 20MEQ TABLET SR PO NR (10:30)
[2018-08-18 12:00] VITALS: BP 122/75
[2018-08-18] MEDS: LORAZEPAM 2MG/ML CPJ IV PRN ×2 (13:12→20:30)
[2018-08-18 16:01] VITALS: BP 114/79
[2018-08-18 20:00] VITALS: BP 132/87
[2018-08-18] MEDS: CHLORDIAZEPOXIDE 25MG CAPSULE PO PRN (20:37)
[2018-08-19] VITALS: BP 121/81
[2018-08-19 04:00] VITALS: BP 135/70
[2018-08-19 07:53] LABS: BASOPHILS % 0.4 % (0.0-2.0); EOSINOPHILS % 0.8 % (0.0-5.0); HEMATOCRIT. 39.2 % (42.0-52.0); HEMOGLOBIN. 12.6 g/dL (14.0-18.0); LYMPHOCYTES % 18.1 % (20.0-50.0); MEAN PLATELET VOLUME 7.7 fl (7.4-10.4); MONOCYTES % 12.5 % (2.0-8.0); NEUTROPHILS % 68.2 % (40.0-76.0); PLATELET 70 x1000/uL (130-400); RED BLOOD CELL COUNT 4.51 mill/uL (4.7-6.1); RED CELL DISTRIBUTION WIDTH 17.6 % (11.6-14.6)
[2018-08-19 08:00] VITALS: BP 108/59
[2018-08-19 08:01] LABS: CHLORIDE 104 mEq/L (98-107)
[2018-08-19] MEDS: FOLIC ACID 1 MG, THIAMINE HCL 100 MG, MVI, ADULT NO.1 10 ML in DEXTROSE 5% WATER 1,000 ML IV SCH ×4 (08:10)
[2018-08-19] MEDS: PANTOPRAZOLE SODIUM 40 MG/VIAL IV SCH (08:10)
[2018-08-19] MEDS: CHLORDIAZEPOXIDE 25MG CAPSULE PO PRN ×2 (08:10→20:48)
[2018-08-19] MEDS: AMLODIPINE 10MG TABLET PO SCH (08:10)
[2018-08-19] MEDS: LORAZEPAM 2MG/ML CPJ IV PRN ×2 (11:43→17:22)
[2018-08-19 11:53] VITALS: BP 116/78
[2018-08-19 16:00] VITALS: BP 108/73
[2018-08-19] MEDS: ACETAMINOPHEN 325MG TABLET PO PRN (17:26)
[2018-08-19 19:54] VITALS: BP 112/79
[2018-08-20] VITALS: BP 131/76
[2018-08-20 04:00] VITALS: BP 138/76
[2018-08-20 08:00] VITALS: BP 127/78
[2018-08-20] MEDS: PANTOPRAZOLE SODIUM 40 MG/VIAL IV SCH (08:39)
[2018-08-20] MEDS: FOLIC ACID 1 MG, THIAMINE HCL 100 MG, MVI, ADULT NO.1 10 ML in DEXTROSE 5% WATER 1,000 ML IV SCH ×4 (08:39)
[2018-08-20] MEDS: AMLODIPINE 10MG TABLET PO SCH (08:39)
[2018-08-20] MEDS: CHLORDIAZEPOXIDE 25MG CAPSULE PO PRN ×3 (08:39→20:58)
[2018-08-20 12:00] VITALS: BP 120/78
[2018-08-20] MEDS: LORAZEPAM 2MG/ML CPJ IV PRN (14:42)
[2018-08-20 16:00] VITALS: BP 119/79
[2018-08-20 20:00] VITALS: BP_SYST 123; BP_SYST 147; BP_DIAS 81; BP_DIAS 93
[2018-08-20] MEDS: IBUPROFEN 800MG TABLET PO PRN (21:03)
[2018-08-21] VITALS: BP 123/79
[2018-08-21 04:00] VITALS: BP 143/85
[2018-08-21] MEDS: CHLORDIAZEPOXIDE 25MG CAPSULE PO PRN ×3 (05:31→20:35)
[2018-08-21] MEDS: ACETAMINOPHEN 325MG TABLET PO PRN ×2 (05:31→20:36)
[2018-08-21 08:00] VITALS: BP 124/78
[2018-08-21] MEDS: PANTOPRAZOLE SODIUM 40 MG/VIAL IV SCH (09:23)
[2018-08-21] MEDS: FOLIC ACID 1 MG, THIAMINE HCL 100 MG, MVI, ADULT NO.1 10 ML in DEXTROSE 5% WATER 1,000 ML IV SCH ×4 (09:23)
[2018-08-21] MEDS: AMLODIPINE 10MG TABLET PO SCH (09:23)
[2018-08-21 12:00] VITALS: BP 122/86
[2018-08-21] MEDS: IBUPROFEN 800MG TABLET PO PRN (15:15)
[2018-08-21 16:00] VITALS: BP 112/66
[2018-08-21 20:00] VITALS: BP 110/77
[2018-08-22] VITALS: BP 125/71
[2018-08-22 04:00] VITALS: BP 116/71
[2018-08-22 07:45] VITALS: BP 141/79
[2018-08-22] MEDS: FOLIC ACID 1 MG, THIAMINE HCL 100 MG, MVI, ADULT NO.1 10 ML in DEXTROSE 5% WATER 1,000 ML IV SCH ×4 (08:03)
[2018-08-22] MEDS: PANTOPRAZOLE SODIUM 40 MG/VIAL IV SCH (08:04)
[2018-08-22] MEDS: AMLODIPINE 10MG TABLET PO SCH (08:04)
[2018-08-22] MEDS: CHLORDIAZEPOXIDE 25MG CAPSULE PO PRN (08:34)
[2018-08-22] MEDS: IBUPROFEN 800MG TABLET PO PRN (08:34)
[2018-08-22 09:55] VITALS: BP 141/79
== END 2018-08-22 10:45 | disposition home or self-care (01) | DRG 282 ==
LOC: ER 22:58 → 8WST 08-16 09:59 → EDBEDREQ 08-16 10:07 → ENRESERV 08-16 11:24 → SUPCPDRO 08-16 11:46
PROVIDERS: ADMIT Hospitalist; ATTEND Hospitalist
DX: K85.90 Acute pancreatitis without necrosis or infection, unspecified (principal); E83.51 Hypocalcemia; F10.129 Alcohol abuse with intoxication, unspecified
CPT/HCPCS: 36415; 71045; 80305; 80320; 83735; 87493; 93970; 99285; C9113; J2060; J2270; J2405; J3411; J3490; J7030; J7040; J7070; G0480

== ENCOUNTER 2018-09-12 19:19 | Emergency (ER) | payer MEDICAID, OTHER ==
[~2018-09-12] VITALS: Ht 175.3 cm; Wt 69.0 kg
[~2018-09-12 19:19] MED LIST changes: -ACET-2708 PO; +ACET5SOL2 PO; +B50 MT; -PROT40 PO; -SUCR1TAB30 MT
[2018-09-13 02:36] VITALS: BP 125/80
== END 2018-09-13 02:38 | disposition home or self-care (01) ==
LOC: ER 19:19
DX: F10.229 Alcohol dependence with intoxication, unspecified (principal); I10 Essential (primary) hypertension; Z79.899 Other long term (current) drug therapy; Y90.9 Presence of alcohol in blood, level not specified
CPT/HCPCS: 99283

== ENCOUNTER 2018-09-13 13:02 | Emergency (ER) | payer MEDICAID ==
[~2018-09-13] VITALS: Ht 175.3 cm; Wt 80.0 kg
[2018-09-13] MEDS ORDERED: SODIUM CHLORIDE 0.9% 1,000 ML IV ONE (15:51)
[2018-09-13 15:54] LABS: BASOPHILS % 0.3 % (0.0-2.0); EOSINOPHILS % 0.2 % (0.0-5.0); HEMATOCRIT. 39.8 % (42.0-52.0); HEMOGLOBIN. 12.9 g/dL (14.0-18.0); MEAN CORPUSCULAR HEMOGLOBIN 28.2 pg (28.0-32.0); MEAN PLATELET VOLUME 6.6 fl (7.4-10.4); MONOCYTES % 9.4 % (2.0-8.0); NEUTROPHILS % 59.1 % (40.0-76.0); PLATELET 75 x1000/uL (130-400); RED BLOOD CELL COUNT 4.57 mill/uL (4.7-6.1); RED CELL DISTRIBUTION WIDTH 18.1 % (11.6-14.6)
[2018-09-13 15:57] LABS: CHLORIDE 109 mEq/L (98-107)
[2018-09-13 16:12] LABS: *BARBITURATES SCREEN URINE NEGATIVE (NEGATIVE); *BENZODIAZEPINES SCREEN URINE NEGATIVE (NEGATIVE); *COCAINE SCREEN URINE NEGATIVE (NEGATIVE); METHADONE URINE SCREEN NEGATIVE (NEGATIVE); OPIATES URINE SCREEN NEGATIVE (NEGATIVE)
[2018-09-13 16:12] LABS: ETHANOL BLOOD 381 mg/dL
[2018-09-13 16:13] LABS: *AMPHETAMINES SCREEN URINE NEGATIVE (NEGATIVE); CANNABINOID URINE SCREEN NEGATIVE (NEGATIVE); PHENCYCLIDINE URINE SCREEN NEGATIVE (NEGATIVE)
[2018-09-13 18:22] VITALS: BP 133/80
== END 2018-09-13 18:26 | disposition home or self-care (01) ==
LOC: ER 13:02
DX: F10.229 Alcohol dependence with intoxication, unspecified (principal); M25.512 Pain in left shoulder; I10 Essential (primary) hypertension; Y90.9 Presence of alcohol in blood, level not specified
CPT/HCPCS: 36415; 73030; 80053; 80305; 80320; 85025; 99284; J7030; Z7610; G0480

== ENCOUNTER 2018-09-16 18:42 | Emergency (ER) | payer MEDICAID ==
[~2018-09-16] VITALS: Ht 182.9 cm; Wt 100.0 kg
[2018-09-16 22:54] LABS: BASOPHILS % 0.3 % (0.0-2.0); EOSINOPHILS % 0.7 % (0.0-5.0); HEMATOCRIT. 35.4 % (42.0-52.0); HEMOGLOBIN. 11.5 g/dL (14.0-18.0); LYMPHOCYTES % 41.7 % (20.0-50.0); MEAN CORPUSCULAR HEMOGLOBIN 28.5 pg (28.0-32.0); MEAN CORPUSCULAR VOLUME 87.5 fL (80.0-94.0); MEAN PLATELET VOLUME 6.9 fl (7.4-10.4); NEUTROPHILS % 46.3 % (40.0-76.0); PLATELET 58 x1000/uL (130-400); RED BLOOD CELL COUNT 4.04 mill/uL (4.7-6.1); RED CELL DISTRIBUTION WIDTH 17.9 % (11.6-14.6)
[2018-09-16 22:59] LABS: CHLORIDE 113 mEq/L (98-107)
[2018-09-17 01:58] VITALS: BP 118/60
== END 2018-09-17 01:59 | disposition home or self-care (01) ==
LOC: ER 18:42
DX: F10.229 Alcohol dependence with intoxication, unspecified (principal); M25.512 Pain in left shoulder; I10 Essential (primary) hypertension; Y90.9 Presence of alcohol in blood, level not specified
CPT/HCPCS: 36415; 71045; 73030; 80053; 83880; 84484; 85025; 93005; 99284; Z7610

== ENCOUNTER 2018-09-26 14:22 | Emergency (ER) | payer MEDICAID ==
[~2018-09-26] VITALS: Ht 175.3 cm; Wt 73.0 kg
[2018-09-26 14:24] VITALS: BP 144/77
[2018-09-26 15:48] LABS: BASOPHILS % 0.4 % (0.0-2.0); CHLORIDE 107 mEq/L (98-107); EOSINOPHILS % 0.5 % (0.0-5.0); HEMATOCRIT. 34.8 % (42.0-52.0); HEMOGLOBIN. 11.6 g/dL (14.0-18.0); LYMPHOCYTES % 31.9 % (20.0-50.0); MEAN CORPUSCULAR HEMOGLOBIN 28.8 pg (28.0-32.0); MEAN CORPUSCULAR VOLUME 86.7 fL (80.0-94.0); MEAN PLATELET VOLUME 6.9 fl (7.4-10.4); MONOCYTES % 11.8 % (2.0-8.0); NEUTROPHILS % 55.4 % (40.0-76.0); PLATELET 69 x1000/uL (130-400); RED BLOOD CELL COUNT 4.01 mill/uL (4.7-6.1); RED CELL DISTRIBUTION WIDTH 17.1 % (11.6-14.6)
[2018-09-26 15:50] LABS: PROTHROMBIN TIME 10.8 sec (9.6-11.0)
[2018-09-26 16:20] LABS: ETHANOL BLOOD 355 mg/dL
== END 2018-09-26 17:27 | disposition left against medical advice (07) ==
LOC: ER 14:22
DX: F10.129 Alcohol abuse with intoxication, unspecified (principal); R10.13 Epigastric pain; I10 Essential (primary) hypertension; Z79.899 Other long term (current) drug therapy; Y90.8 Blood alcohol level of 240 mg/100 ml or more
CPT/HCPCS: 36415; 80320; 99283; G0480

== ENCOUNTER 2018-09-29 21:40 | Emergency (ER) | payer MEDICAID ==
[~2018-09-29] VITALS: Ht 177.8 cm; Wt 78.0 kg
[2018-09-29] MEDS ORDERED: SODIUM CHLORIDE 0.9% 1,000 ML IV ONE (22:08)
[2018-09-29] MEDS ORDERED: DIPHENHYDRAMINE 50MG/ML VIAL IV ONE (22:15)
[2018-09-29] MEDS ORDERED: METOCLOPRAMIDE HCL 10MG/2ML VIAL IV ONE (22:15)
[2018-09-29 22:56] LABS: BASOPHILS % 0.5 % (0.0-2.0); HEMATOCRIT. 38.4 % (42.0-52.0); HEMOGLOBIN. 12.8 g/dL (14.0-18.0); LYMPHOCYTES % 47.7 % (20.0-50.0); MEAN CORPUSCULAR HEMOGLOBIN 28.8 pg (28.0-32.0); MEAN CORPUSCULAR VOLUME 86.1 fL (80.0-94.0); MEAN PLATELET VOLUME 6.3 fl (7.4-10.4); MONOCYTES % 10.2 % (2.0-8.0); NEUTROPHILS % 40.6 % (40.0-76.0); PLATELET 69 x1000/uL (130-400); RED BLOOD CELL COUNT 4.46 mill/uL (4.7-6.1)
[2018-09-29 22:58] LABS: CHLORIDE 109 mEq/L (98-107)
[2018-09-29 23:00] LABS: PROTHROMBIN TIME 10.4 sec (9.6-11.0)
[2018-09-29 23:11] LABS: ETHANOL BLOOD 488 mg/dL
[2018-09-30 00:41] LABS: *AMPHETAMINES SCREEN URINE NEGATIVE (NEGATIVE); *BARBITURATES SCREEN URINE NEGATIVE (NEGATIVE); *BENZODIAZEPINES SCREEN URINE NEGATIVE (NEGATIVE); *COCAINE SCREEN URINE NEGATIVE (NEGATIVE)
[2018-09-30 00:42] LABS: CANNABINOID URINE SCREEN NEGATIVE (NEGATIVE); METHADONE URINE SCREEN NEGATIVE (NEGATIVE); OPIATES URINE SCREEN NEGATIVE (NEGATIVE); PHENCYCLIDINE URINE SCREEN NEGATIVE (NEGATIVE)
[2018-09-30 07:24] VITALS: BP 128/81
== END 2018-09-30 07:55 | disposition home or self-care (01) ==
LOC: ER 22:04
DX: F10.129 Alcohol abuse with intoxication, unspecified (principal); Y90.8 Blood alcohol level of 240 mg/100 ml or more; G43.909 Migraine, unspecified, not intractable, without status migrainosus; I10 Essential (primary) hypertension
CPT/HCPCS: 36415; 70450; 80053; 80305; 80320; 85025; 85610; 96374; 96375; 99284; J1200; J2765; J7030; Z7610; G0480

== ENCOUNTER 2018-11-02 21:19 | Emergency (ER) | payer MEDICAID ==
[~2018-11-02] VITALS: Ht 175.3 cm; Wt 85.0 kg
[2018-11-02 21:22] VITALS: BP 140/100
== END 2018-11-03 00:38 | disposition left against medical advice (07) ==
LOC: ER 21:19
DX: Z53.21 Procedure and treatment not carried out due to patient leaving prior to being seen by health care provider (principal); I10 Essential (primary) hypertension; R56.9 Unspecified convulsions

== ENCOUNTER 2019-01-11 16:21 | Emergency (ER) | payer MEDICAID ==
[~2019-01-11] VITALS: Ht 177.8 cm; Wt 72.0 kg
[2019-01-11] MEDS ORDERED: SODIUM CHLORIDE 0.9% 1,000 ML IV ONE (17:00)
[2019-01-11 18:55] LABS: *AMPHETAMINES SCREEN URINE NEGATIVE (NEGATIVE); *BARBITURATES SCREEN URINE NEGATIVE (NEGATIVE); *COCAINE SCREEN URINE NEGATIVE (NEGATIVE); METHADONE URINE SCREEN NEGATIVE (NEGATIVE)
[2019-01-11 18:56] LABS: *BENZODIAZEPINES SCREEN URINE NEGATIVE (NEGATIVE); CANNABINOID URINE SCREEN NEGATIVE (NEGATIVE); OPIATES URINE SCREEN NEGATIVE (NEGATIVE); PHENCYCLIDINE URINE SCREEN NEGATIVE (NEGATIVE)
[2019-01-11] MEDS ORDERED: TRAMADOL 50MG TABLET PO ONE (20:30)
[2019-01-11] MEDS ORDERED: KETOROLAC 30MG/ML VIAL IV ONE (20:30)
[2019-01-11 22:10] VITALS: BP 129/79
== END 2019-01-11 22:24 | disposition home or self-care (01) ==
LOC: ER 16:21
DX: R51 Headache (principal); I10 Essential (primary) hypertension; Z79.899 Other long term (current) drug therapy
CPT/HCPCS: 80305; 96374; 99283; J1885; J7030

== ENCOUNTER 2019-04-03 19:57 | Emergency (ER) | payer MEDICAID ==
[~2019-04-03] VITALS: Ht 177.8 cm; Wt 90.0 kg
[2019-04-03] MEDS ORDERED: ACETAMINOPHEN WITH CODEINE 300/30MG TABLET PO ONE (21:00)
[2019-04-03 22:31] VITALS: BP 117/72
[2019-04-03] MEDS ORDERED: CHLORDIAZEPOXIDE 5 MG CAPSULE PO NR (23:15)
== END 2019-04-04 | disposition home or self-care (01) ==
LOC: ER 20:02
DX: R51 Headache (principal); M25.512 Pain in left shoulder; F10.129 Alcohol abuse with intoxication, unspecified; R56.9 Unspecified convulsions; E11.9 Type 2 diabetes mellitus without complications; I10 Essential (primary) hypertension; Y90.9 Presence of alcohol in blood, level not specified; W01.0XXA Fall on same level from slipping, tripping and stumbling without subsequent striking against object, initial encounter; Y93.9 Activity, unspecified; Y92.9 Unspecified place or not applicable
CPT/HCPCS: 73030; 99283

== ENCOUNTER 2019-04-26 19:15 | Emergency (ER) | payer MEDICAID ==
[~2019-04-26] VITALS: Ht 180.3 cm; Wt 78.0 kg
[2019-04-27] MEDS ORDERED: SODIUM CHLORIDE 0.9% 1,000 ML IV ONE (04:30)
[2019-04-27 05:01] LABS: HEMATOCRIT. 34.7 % (42.0-52.0); HEMOGLOBIN. 11.1 g/dL (14.0-18.0); MEAN CORPUSCULAR HEMOGLOBIN 28.4 pg (28.0-32.0); MEAN CORPUSCULAR VOLUME 88.8 fL (80.0-94.0); PLATELET 151 x1000/uL (130-400); RED BLOOD CELL COUNT 3.91 mill/uL (4.7-6.1); RED CELL DISTRIBUTION WIDTH 15.5 % (11.6-14.6)
[2019-04-27 05:09] LABS: CHLORIDE 112 mEq/L (98-107)
[2019-04-27 05:13] LABS: ETHANOL BLOOD 110 mg/dL
[2019-04-27 05:25] LABS: ATYPICAL LYMPHOCYTES 3; PLATELET ESTIMATE NORMAL
[2019-04-27 05:47] VITALS: BP 135/88
== END 2019-04-27 05:49 | disposition home or self-care (01) ==
LOC: ER 19:15
DX: F10.129 Alcohol abuse with intoxication, unspecified (principal); Y90.5 Blood alcohol level of 100-119 mg/100 ml; I10 Essential (primary) hypertension; G40.909 Epilepsy, unspecified, not intractable, without status epilepticus
CPT/HCPCS: 36415; 80053; 80320; 83690; 85025; 99283; J7030; G0480

== ENCOUNTER 2019-04-29 17:45 | Emergency (ER) | payer MEDICAID ==
[~2019-04-29] VITALS: Ht 175.3 cm; Wt 70.0 kg
[2019-04-29 17:59] VITALS: BP 121/77
== END 2019-04-29 22:00 | disposition left against medical advice (07) ==
LOC: ER 17:45
DX: F10.229 Alcohol dependence with intoxication, unspecified (principal); Y90.9 Presence of alcohol in blood, level not specified
CPT/HCPCS: 99283

== ENCOUNTER 2019-04-30 18:03 | Emergency (ER) | payer MEDICAID ==
[~2019-04-30] VITALS: Ht 177.8 cm; Wt 79.0 kg
[2019-04-30 18:13] VITALS: BP 124/86
== END 2019-05-01 02:24 | disposition left against medical advice (07) ==
LOC: ER 18:03
DX: F10.129 Alcohol abuse with intoxication, unspecified (principal); Y90.9 Presence of alcohol in blood, level not specified
CPT/HCPCS: 99283

== ENCOUNTER 2019-05-09 18:04 | Emergency (ER) | payer MEDICAID ==
[~2019-05-09] VITALS: Ht 177.8 cm; Wt 85.0 kg
[2019-05-10] MEDS ORDERED: SODIUM CHLORIDE 0.9% 1,000 ML IV ONE (00:24)
[2019-05-10] MEDS ORDERED: ACETAMINOPHEN 325MG TABLET PO ONE (00:30)
[2019-05-10 00:43] LABS: BASOPHILS % 0.4 % (0.0-2.0); EOSINOPHILS % 1.9 % (0.0-5.0); HEMATOCRIT. 33.5 % (42.0-52.0); HEMOGLOBIN. 10.8 g/dL (14.0-18.0); LYMPHOCYTES % 43.1 % (20.0-50.0); MEAN CORPUSCULAR HEMOGLOBIN 28.2 pg (28.0-32.0); MEAN CORPUSCULAR VOLUME 87.4 fL (80.0-94.0); MEAN PLATELET VOLUME 6.3 fl (7.4-10.4); NEUTROPHILS % 43.6 % (40.0-76.0); PLATELET 74 x1000/uL (130-400); RED BLOOD CELL COUNT 3.83 mill/uL (4.7-6.1); RED CELL DISTRIBUTION WIDTH 15.9 % (11.6-14.6)
[2019-05-10 00:52] LABS: CHLORIDE 114 mEq/L (98-107)
[2019-05-10 01:13] LABS: ETHANOL BLOOD 370 mg/dL
[2019-05-10] MEDS ORDERED: CHLORDIAZEPOXIDE 25MG CAPSULE PO ONE (01:30)
[2019-05-10 07:30] VITALS: BP 120/78
== END 2019-05-10 09:30 | disposition left against medical advice (07) ==
LOC: ER 18:04
DX: F10.20 Alcohol dependence, uncomplicated (principal); I10 Essential (primary) hypertension; F17.200 Nicotine dependence, unspecified, uncomplicated; Z59.0 Homelessness; Z79.899 Other long term (current) drug therapy; Z85.07 Personal history of malignant neoplasm of pancreas; Y90.8 Blood alcohol level of 240 mg/100 ml or more
CPT/HCPCS: 36415; 80053; 80320; 85025; 99283; J7030; Z7610; G0480

== ENCOUNTER 2019-05-23 04:09 | Emergency (ER) | payer MEDICAID ==
[~2019-05-23] VITALS: Ht 180.3 cm; Wt 79.0 kg
[2019-05-23 04:14] VITALS: BP 134/97
== END 2019-05-23 08:41 | disposition left against medical advice (07) ==
LOC: ER 04:09
DX: Z53.21 Procedure and treatment not carried out due to patient leaving prior to being seen by health care provider (principal); I10 Essential (primary) hypertension; R56.9 Unspecified convulsions

== ENCOUNTER 2019-06-04 09:58 | Emergency (ER) | payer MEDICAID ==
[~2019-06-04] VITALS: Ht 177.8 cm; Wt 81.6 kg
[2019-06-04] MEDS ORDERED: ONDANSETRON HCL 4MG/2ML INJ IV STA (11:12)
[2019-06-04] MEDS ORDERED: SODIUM CHLORIDE 0.9% 1,000 ML IV ONE (11:12)
[2019-06-04] MEDS ORDERED: FOLIC ACID 1 MG, THIAMINE HCL 100 MG, MVI, ADULT NO.1 10 ML in DEXTROSE 5% WATER 1,000 ML IV ONE ×4 (11:15)
[2019-06-04] MEDS ORDERED: CHLORDIAZEPOXIDE 25MG CAPSULE PO ONE ×2 (11:15→14:30)
[2019-06-04 11:39] LABS: BASOPHILS % 0.1 % (0.0-2.0); EOSINOPHILS % 1.8 % (0.0-5.0); HEMATOCRIT. 36.2 % (42.0-52.0); HEMOGLOBIN. 11.8 g/dL (14.0-18.0); LYMPHOCYTES % 43.8 % (20.0-50.0); MEAN CORPUSCULAR HEMOGLOBIN 27.6 pg (28.0-32.0); MEAN CORPUSCULAR VOLUME 85.2 fL (80.0-94.0); MEAN PLATELET VOLUME 7.3 fl (7.4-10.4); MONOCYTES % 8.9 % (2.0-8.0); NEUTROPHILS % 45.4 % (40.0-76.0); PLATELET 117 x1000/uL (130-400); RED BLOOD CELL COUNT 4.25 mill/uL (4.7-6.1); RED CELL DISTRIBUTION WIDTH 16.6 % (11.6-14.6)
[2019-06-04 11:40] LABS: CHLORIDE 111 mEq/L (98-107)
[2019-06-04 12:04] LABS: ETHANOL BLOOD 396 mg/dL
[2019-06-04] MEDS ORDERED: ACETAMINOPHEN 325MG TABLET PO STA (12:08)
[2019-06-04 13:28] LABS: CLARITY URINE CLEAR (CLEAR); COLOR URINE YELLOW (YELLOW); KETONES URINE NEGATIVE (NEGATIVE); LEUKOCYTE ESTERASE URINE NEGATIVE (NEGATIVE); NITRITE URINE NEGATIVE (NEGATIVE); OCCULT BLOOD URINE NEGATIVE (NEGATIVE); PROTEIN URINE NEGATIVE (NEGATIVE); SPECIFIC GRAVITY URINE 1.009 (1.005-1.030); UROBILINOGEN URINE 0.2 E.U./dL (0.2-1.0)
[2019-06-04 14:29] VITALS: BP 133/78
== END 2019-06-04 14:31 | disposition home or self-care (01) ==
LOC: ER 09:58
DX: F10.229 Alcohol dependence with intoxication, unspecified (principal); D64.9 Anemia, unspecified; I10 Essential (primary) hypertension; R42 Dizziness and giddiness; R55 Syncope and collapse; R10.13 Epigastric pain; R10.32 Left lower quadrant pain; Z59.0 Homelessness; Z79.899 Other long term (current) drug therapy; Z87.19 Personal history of other diseases of the digestive system; Y90.8 Blood alcohol level of 240 mg/100 ml or more
CPT/HCPCS: 36415; 70450; 80053; 80320; 81003; 83690; 85025; 93005; 96361; 96365; 96366; 96375; 99285; J2405; J3411; J3490; J7030; J7070; G0480

== ENCOUNTER 2019-07-01 18:35 | Emergency (ER) | payer MEDICAID ==
[~2019-07-01] VITALS: Ht 177.8 cm; Wt 79.0 kg
[2019-07-01 18:37] VITALS: BP 129/76
== END 2019-07-01 21:06 | disposition left against medical advice (07) ==
LOC: ER 18:35
DX: Z53.21 Procedure and treatment not carried out due to patient leaving prior to being seen by health care provider (principal)

== ENCOUNTER 2019-07-04 13:07 | Emergency (ER) | payer MEDICAID ==
[~2019-07-04] VITALS: Ht 177.8 cm; Wt 83.0 kg
[2019-07-04] MEDS ORDERED: LORAZEPAM 1MG TABLET PO ONE (15:00)
[2019-07-04 15:14] LABS: BASOPHILS % 0.6 % (0.0-2.0); EOSINOPHILS % 1.5 % (0.0-5.0); HEMATOCRIT. 40.7 % (42.0-52.0); HEMOGLOBIN. 13.2 g/dL (14.0-18.0); LYMPHOCYTES % 37.8 % (20.0-50.0); MEAN CORPUSCULAR HEMOGLOBIN 27.6 pg (28.0-32.0); MEAN CORPUSCULAR VOLUME 84.7 fL (80.0-94.0); MEAN PLATELET VOLUME 6.2 fl (7.4-10.4); MONOCYTES % 12.2 % (2.0-8.0); NEUTROPHILS % 47.9 % (40.0-76.0); PLATELET 74 x1000/uL (130-400)
[2019-07-04 15:18] LABS: CHLORIDE 107 mEq/L (98-107)
[2019-07-04 16:07] VITALS: BP 135/75
[2019-07-04] MEDS ORDERED: ACETAMINOPHEN WITH CODEINE 300/30MG TABLET PO ONE (16:30)
== END 2019-07-04 16:41 | disposition home or self-care (01) ==
LOC: ER 13:07
DX: F10.239 Alcohol dependence with withdrawal, unspecified (principal); Y90.9 Presence of alcohol in blood, level not specified; K85.90 Acute pancreatitis without necrosis or infection, unspecified; I10 Essential (primary) hypertension; R56.9 Unspecified convulsions
CPT/HCPCS: 36415; 80053; 85025; 99283

== ENCOUNTER 2019-07-12 14:38 | Emergency (ER) | payer MEDICAID ==
[~2019-07-12] VITALS: Ht 175.3 cm; Wt 77.0 kg
[2019-07-12] MEDS ORDERED: SODIUM CHLORIDE 0.9% 1,000 ML IV ONE (15:22)
[2019-07-12] MEDS ORDERED: ONDANSETRON HCL 4MG/2ML INJ IV STA (15:22)
[2019-07-12] MEDS ORDERED: LORAZEPAM 2MG/ML CPJ IV ONE (15:30)
[2019-07-12] MEDS ORDERED: FOLIC ACID 1 MG, THIAMINE HCL 100 MG, MVI, ADULT NO.1 10 ML in DEXTROSE 5% WATER 1,000 ML IV ONE ×4 (15:30)
[2019-07-12 15:48] LABS: BASOPHILS % 0.4 % (0.0-2.0); EOSINOPHILS % 2.1 % (0.0-5.0); HEMATOCRIT. 33.7 % (42.0-52.0); LYMPHOCYTES % 40.1 % (20.0-50.0); MEAN CORPUSCULAR HEMOGLOBIN 27.5 pg (28.0-32.0); MEAN CORPUSCULAR VOLUME 84.5 fL (80.0-94.0); MEAN PLATELET VOLUME 6.6 fl (7.4-10.4); MONOCYTES % 13.7 % (2.0-8.0); NEUTROPHILS % 43.7 % (40.0-76.0); PLATELET 72 x1000/uL (130-400); RED BLOOD CELL COUNT 3.99 mill/uL (4.7-6.1); RED CELL DISTRIBUTION WIDTH 18.1 % (11.6-14.6)
[2019-07-12 15:50] LABS: CHLORIDE 111 mEq/L (98-107)
[2019-07-12 15:53] LABS: CLARITY URINE CLEAR (CLEAR); COLOR URINE YELLOW (YELLOW); KETONES URINE NEGATIVE (NEGATIVE); LEUKOCYTE ESTERASE URINE NEGATIVE (NEGATIVE); NITRITE URINE NEGATIVE (NEGATIVE); OCCULT BLOOD URINE NEGATIVE (NEGATIVE); PH URINE 5.5 (4.5-8.0); PROTEIN URINE NEGATIVE (NEGATIVE); SPECIFIC GRAVITY URINE 1.003 (1.005-1.030); UROBILINOGEN URINE 0.2 E.U./dL (0.2-1.0)
[2019-07-12 16:06] LABS: ETHANOL BLOOD 440 mg/dL
[2019-07-12 16:11] LABS: *AMPHETAMINES SCREEN URINE NEGATIVE (NEGATIVE); *BARBITURATES SCREEN URINE NEGATIVE (NEGATIVE); *BENZODIAZEPINES SCREEN URINE NEGATIVE (NEGATIVE)
[2019-07-12 16:12] LABS: *COCAINE SCREEN URINE NEGATIVE (NEGATIVE); CANNABINOID URINE SCREEN NEGATIVE (NEGATIVE); METHADONE URINE SCREEN NEGATIVE (NEGATIVE); OPIATES URINE SCREEN NEGATIVE (NEGATIVE); PHENCYCLIDINE URINE SCREEN NEGATIVE (NEGATIVE)
[2019-07-12 19:06] VITALS: BP 105/52
== END 2019-07-12 19:28 | disposition home or self-care (01) ==
LOC: ER 14:38
DX: T51.8X1A Toxic effect of other alcohols, accidental (unintentional), initial encounter (principal); K29.20 Alcoholic gastritis without bleeding; I10 Essential (primary) hypertension; Y90.8 Blood alcohol level of 240 mg/100 ml or more; Z79.899 Other long term (current) drug therapy; Y92.89 Other specified places as the place of occurrence of the external cause
CPT/HCPCS: 36415; 80053; 80305; 80320; 81003; 83690; 84484; 85025; 96365; 96375; 99284; J2060; J2405; J3411; J3490; J7030; J7070; G0480

== ENCOUNTER 2019-07-28 15:24 | Emergency (ER) | payer MEDICAID ==
[~2019-07-28] VITALS: Ht 172.7 cm; Wt 69.0 kg
[2019-07-28] MEDS ORDERED: ACETAMINOPHEN 500MG TABLET PO ONE (15:45)
[2019-07-28 17:04] VITALS: BP 118/78
== END 2019-07-28 18:40 | disposition home or self-care (01) ==
LOC: ER 15:24
DX: F10.20 Alcohol dependence, uncomplicated (principal); Y90.0 Blood alcohol level of less than 20 mg/100 ml; I10 Essential (primary) hypertension; Z79.899 Other long term (current) drug therapy
CPT/HCPCS: 99283

== ENCOUNTER 2019-08-03 23:53 | Emergency (ER) | payer MEDICAID ==
[~2019-08-03] VITALS: Ht 175.3 cm; Wt 77.0 kg
[2019-08-04] MEDS ORDERED: ACETAMINOPHEN 325MG TABLET PO ONE ×2 (01:00→10:45)
[2019-08-04 09:45] VITALS: BP 157/90
== END 2019-08-04 11:30 | disposition left against medical advice (07) ==
LOC: ER 23:53
DX: R10.13 Epigastric pain (principal); F10.229 Alcohol dependence with intoxication, unspecified; Y90.0 Blood alcohol level of less than 20 mg/100 ml; I10 Essential (primary) hypertension; Z79.899 Other long term (current) drug therapy
CPT/HCPCS: 99283

== ENCOUNTER 2019-08-23 13:01 | Emergency (ER) | payer MEDICAID ==
[~2019-08-23] VITALS: Ht 172.7 cm; Wt 75.0 kg
[2019-08-23 13:05] VITALS: BP 130/80
== END 2019-08-23 14:15 | disposition left against medical advice (07) ==
LOC: ER 13:08
DX: R51 Headache (principal); Z53.21 Procedure and treatment not carried out due to patient leaving prior to being seen by health care provider

== ENCOUNTER 2019-08-24 19:47 | Emergency (ER) | payer MEDICAID ==
[~2019-08-24] VITALS: Ht 175.3 cm; Wt 185.0 kg
[2019-08-24 19:49] VITALS: BP 146/83
== END 2019-08-24 22:04 | disposition home or self-care (01) ==
LOC: ER 19:47
DX: F10.229 Alcohol dependence with intoxication, unspecified (principal); I10 Essential (primary) hypertension; Y90.9 Presence of alcohol in blood, level not specified; Z87.19 Personal history of other diseases of the digestive system
CPT/HCPCS: 99283

== ENCOUNTER 2019-08-26 13:54 | Emergency (ER) | payer MEDICAID ==
[~2019-08-26] VITALS: Ht 172.7 cm; Wt 79.0 kg
[2019-08-26 15:00] VITALS: BP 115/87
[2019-08-26] MEDS ORDERED: ONDANSETRON HCL 4MG/2ML INJ IV ONE (15:00)
[2019-08-26] MEDS ORDERED: FOLIC ACID 1 MG, THIAMINE HCL 100 MG, MVI, ADULT NO.1 10 ML in DEXTROSE 5% WATER 1,000 ML IV ONE ×4 (15:00)
[2019-08-26 15:26] LABS: BASOPHILS % 0.3 % (0.0-2.0); EOSINOPHILS % 0.7 % (0.0-5.0); HEMATOCRIT. 34.4 % (42.0-52.0); HEMOGLOBIN. 11.1 g/dL (14.0-18.0); LYMPHOCYTES % 40.7 % (20.0-50.0); MEAN CORPUSCULAR HEMOGLOBIN 27.6 pg (28.0-32.0); MEAN CORPUSCULAR VOLUME 85.4 fL (80.0-94.0); MEAN PLATELET VOLUME 6.7 fl (7.4-10.4); MONOCYTES % 7.9 % (2.0-8.0); NEUTROPHILS % 50.4 % (40.0-76.0); PLATELET 78 x1000/uL (130-400); RED BLOOD CELL COUNT 4.03 mill/uL (4.7-6.1); RED CELL DISTRIBUTION WIDTH 17.7 % (11.6-14.6)
[2019-08-26 15:31] LABS: CHLORIDE 113 mEq/L (98-107)
[2019-08-26 16:13] LABS: ETHANOL BLOOD 403 mg/dL
== END 2019-08-26 19:47 | disposition home or self-care (01) ==
LOC: ER 13:54
DX: T51.0X1A Toxic effect of ethanol, accidental (unintentional), initial encounter (principal); G92 Toxic encephalopathy; I10 Essential (primary) hypertension; Y90.8 Blood alcohol level of 240 mg/100 ml or more; Z87.19 Personal history of other diseases of the digestive system; Y92.488 Other paved roadways as the place of occurrence of the external cause
CPT/HCPCS: 36415; 80053; 80307; 80320; 80329; 85025; 99284; G0480

== ENCOUNTER 2019-09-21 12:32 | Emergency (ER) | payer MEDICAID ==
[~2019-09-21] VITALS: Ht 172.7 cm; Wt 75.0 kg
[2019-09-21] MEDS ORDERED: KETOROLAC 30MG/ML VIAL IV STA (12:47)
[2019-09-21] MEDS ORDERED: ONDANSETRON HCL 4MG/2ML INJ IV STA (12:47)
[2019-09-21] MEDS ORDERED: SODIUM CHLORIDE 0.9% 1,000 ML IV ONE (12:47)
[2019-09-21 13:09] LABS: BASOPHILS % 0.4 % (0.0-2.0); EOSINOPHILS % 0.5 % (0.0-5.0); HEMATOCRIT. 33.8 % (42.0-52.0); HEMOGLOBIN. 11.2 g/dL (14.0-18.0); MEAN CORPUSCULAR HEMOGLOBIN 28.3 pg (28.0-32.0); MEAN CORPUSCULAR VOLUME 85.4 fL (80.0-94.0); MEAN PLATELET VOLUME 6.4 fl (7.4-10.4); MONOCYTES % 7.9 % (2.0-8.0); NEUTROPHILS % 61.2 % (40.0-76.0); PLATELET 92 x1000/uL (130-400); RED BLOOD CELL COUNT 3.96 mill/uL (4.7-6.1); RED CELL DISTRIBUTION WIDTH 17.6 % (11.6-14.6)
[2019-09-21 13:13] LABS: CHLORIDE 108 mEq/L (98-107)
[2019-09-21 13:27] LABS: ETHANOL BLOOD 364 mg/dL
[2019-09-21 14:58] VITALS: BP 128/75
== END 2019-09-21 14:59 | disposition left against medical advice (07) ==
LOC: ER 12:39
DX: F10.229 Alcohol dependence with intoxication, unspecified (principal); I10 Essential (primary) hypertension; Y90.8 Blood alcohol level of 240 mg/100 ml or more
CPT/HCPCS: 36415; 80053; 80320; 85025; 96361; 96374; 96375; 99284; J1885; J2405; J7030; G0480

== ENCOUNTER 2019-09-26 20:48 | Emergency (ER) | payer MEDICAID ==
[~2019-09-26] VITALS: Ht 175.3 cm; Wt 84.0 kg
[2019-09-26] MEDS ORDERED: SODIUM CHLORIDE 0.9% 1,000 ML IV ONE (21:10)
[2019-09-26 21:45] LABS: BASOPHILS % 0.5 % (0.0-2.0); EOSINOPHILS % 1.5 % (0.0-5.0); HEMATOCRIT. 35.9 % (42.0-52.0); HEMOGLOBIN. 11.8 g/dL (14.0-18.0); LYMPHOCYTES % 44.1 % (20.0-50.0); MEAN CORPUSCULAR HEMOGLOBIN 27.7 pg (28.0-32.0); MEAN CORPUSCULAR VOLUME 84.7 fL (80.0-94.0); MEAN PLATELET VOLUME 6.7 fl (7.4-10.4); MONOCYTES % 10.3 % (2.0-8.0); NEUTROPHILS % 43.6 % (40.0-76.0); PLATELET 65 x1000/uL (130-400); RED BLOOD CELL COUNT 4.24 mill/uL (4.7-6.1); RED CELL DISTRIBUTION WIDTH 17.7 % (11.6-14.6)
[2019-09-26 21:49] LABS: CHLORIDE 111 mEq/L (98-107)
[2019-09-26 21:56] LABS: *AMPHETAMINES SCREEN URINE NEGATIVE (NEGATIVE); *BARBITURATES SCREEN URINE NEGATIVE (NEGATIVE); *BENZODIAZEPINES SCREEN URINE NEGATIVE (NEGATIVE); *COCAINE SCREEN URINE NEGATIVE (NEGATIVE)
[2019-09-26 21:57] LABS: METHADONE URINE SCREEN NEGATIVE (NEGATIVE); OPIATES URINE SCREEN NEGATIVE (NEGATIVE); PHENCYCLIDINE URINE SCREEN NEGATIVE (NEGATIVE)
[2019-09-26 22:06] LABS: CANNABINOID URINE SCREEN NEGATIVE (NEGATIVE)
[2019-09-26 22:15] LABS: ETHANOL BLOOD 521 mg/dL
[2019-09-26] MEDS ORDERED: IBUPROFEN 600MG TABLET PO ONE (22:15)
[2019-09-27 05:56] VITALS: BP 142/85
== END 2019-09-27 07:14 | disposition home or self-care (01) ==
LOC: ER 20:48
DX: F10.229 Alcohol dependence with intoxication, unspecified (principal); Y90.0 Blood alcohol level of less than 20 mg/100 ml; I10 Essential (primary) hypertension; Z79.899 Other long term (current) drug therapy
CPT/HCPCS: 36415; 80053; 80305; 80320; 85025; 99285; J7030; G0480

== ENCOUNTER 2019-11-03 10:30 | Emergency (ER) | payer MEDICAID ==
[~2019-11-03] VITALS: Ht 172.7 cm; Wt 70.0 kg
[2019-11-03] MEDS ORDERED: LORAZEPAM 2MG/ML CPJ IV ONE (10:45)
[2019-11-03] MEDS ORDERED: SODIUM CHLORIDE 0.9% 1,000 ML IV ONE (10:45)
[2019-11-03] MEDS ORDERED: LORAZEPAM 2MG/ML CPJ ONE (10:46)
[2019-11-03 11:17] LABS: CHLORIDE 104 mEq/L (98-107)
[2019-11-03 11:21] LABS: ETHANOL BLOOD 19 mg/dL
[2019-11-03 11:25] LABS: CLARITY URINE CLEAR (CLEAR); COLOR URINE DARK YELLOW (YELLOW); KETONES URINE 2+ (NEGATIVE); LEUKOCYTE ESTERASE URINE NEGATIVE (NEGATIVE); NITRITE URINE NEGATIVE (NEGATIVE); OCCULT BLOOD URINE 1+ (NEGATIVE); PROTEIN URINE 3+ (NEGATIVE); SPECIFIC GRAVITY URINE 1.024 (1.005-1.030)
[2019-11-03 11:30] LABS: BASOPHILS % 0.5 % (0.0-2.0); HEMATOCRIT. 37.4 % (42.0-52.0); HEMOGLOBIN. 11.8 g/dL (14.0-18.0); LYMPHOCYTES % 18.7 % (20.0-50.0); MEAN CORPUSCULAR HEMOGLOBIN 28.3 pg (28.0-32.0); MEAN CORPUSCULAR VOLUME 89.7 fL (80.0-94.0); MONOCYTES % 7.6 % (2.0-8.0); NEUTROPHILS % 73.2 % (40.0-76.0); RED BLOOD CELL COUNT 4.16 mill/uL (4.7-6.1); RED CELL DISTRIBUTION WIDTH 18.6 % (11.6-14.6)
[2019-11-03 11:36] LABS: PLATELET 47 x1000/uL (130-400)
[2019-11-03 11:54] LABS: *BARBITURATES SCREEN URINE NEGATIVE (NEGATIVE); *BENZODIAZEPINES SCREEN URINE PRESUMTIVE POSITIVE (NEGATIVE)
[2019-11-03 11:55] LABS: *AMPHETAMINES SCREEN URINE NEGATIVE (NEGATIVE); *COCAINE SCREEN URINE NEGATIVE (NEGATIVE); CANNABINOID URINE SCREEN NEGATIVE (NEGATIVE); METHADONE URINE SCREEN NEGATIVE (NEGATIVE); OPIATES URINE SCREEN NEGATIVE (NEGATIVE); PHENCYCLIDINE URINE SCREEN NEGATIVE (NEGATIVE)
[2019-11-03] MEDS ORDERED: POTASSIUM CHLORIDE 20MEQ TABLET SR PO ONE (12:15)
[2019-11-03 12:30] LABS: PLATELET ESTIMATE MARKEDLY DECREASED
[2019-11-03] MEDS ORDERED: CHLORDIAZEPOXIDE 25MG CAPSULE PO ONE (12:30)
[2019-11-03] MEDS ORDERED: LORAZEPAM 1MG TABLET PO ONE (12:30)
[2019-11-03] MEDS ORDERED: ONDANSETRON HCL 4MG/2ML INJ IV ONE (12:30)
[2019-11-03] MEDS ORDERED: ACETAMINOPHEN 325MG TABLET PO ONE (14:30)
[2019-11-03 15:29] VITALS: BP 158/62
== END 2019-11-03 15:34 | disposition home or self-care (01) ==
LOC: ER 10:41
DX: R56.9 Unspecified convulsions (principal); F10.20 Alcohol dependence, uncomplicated; Y90.0 Blood alcohol level of less than 20 mg/100 ml; E87.6 Hypokalemia; I10 Essential (primary) hypertension; Z98.890 Other specified postprocedural states
CPT/HCPCS: 36415; 80053; 80185; 80305; 80320; 81003; 85025; 96374; 99285; J2060; J2405; J7030; G0480

== ENCOUNTER 2019-11-15 12:00 | Emergency (ER) | payer MEDICAID ==
[~2019-11-15] VITALS: Ht 180.3 cm; Wt 79.0 kg
[2019-11-15] MEDS ORDERED: SODIUM CHLORIDE 0.9% 1,000 ML IV ONE ×2 (12:49)
[2019-11-15] MEDS ORDERED: KETOROLAC 30MG/ML VIAL IV STA (12:49)
[2019-11-15] MEDS ORDERED: FOLIC ACID 1 MG, THIAMINE HCL 100 MG, MVI, ADULT NO.1 10 ML in DEXTROSE 5% WATER 1,000 ML IV ONE ×4 (13:00)
[2019-11-15 13:20] LABS: BASOPHILS % 0.7 % (0.0-2.0); EOSINOPHILS % 0.9 % (0.0-5.0); HEMOGLOBIN. 10.4 g/dL (14.0-18.0); LYMPHOCYTES % 33.5 % (20.0-50.0); MEAN CORPUSCULAR HEMOGLOBIN 27.9 pg (28.0-32.0); MEAN CORPUSCULAR VOLUME 86.1 fL (80.0-94.0); MEAN PLATELET VOLUME 6.4 fl (7.4-10.4); MONOCYTES % 10.2 % (2.0-8.0); NEUTROPHILS % 54.7 % (40.0-76.0); PLATELET 106 x1000/uL (130-400); RED BLOOD CELL COUNT 3.71 mill/uL (4.7-6.1); RED CELL DISTRIBUTION WIDTH 17.8 % (11.6-14.6)
[2019-11-15 13:28] LABS: CHLORIDE 111 mEq/L (98-107)
[2019-11-15 13:53] LABS: ETHANOL BLOOD 351 mg/dL
[2019-11-15 14:15] VITALS: BP 142/88
== END 2019-11-15 14:47 | disposition left against medical advice (07) ==
LOC: ER 12:00
DX: R51 Headache (principal); F10.129 Alcohol abuse with intoxication, unspecified; Z98.890 Other specified postprocedural states; Z79.899 Other long term (current) drug therapy; I10 Essential (primary) hypertension; Y90.8 Blood alcohol level of 240 mg/100 ml or more
CPT/HCPCS: 36415; 80053; 80320; 83735; 85025; 93005; 96374; 99285; J3411; J3490; J7030; J7070; G0480

== ENCOUNTER 2019-11-18 17:34 | Emergency (ER) | payer MEDICAID ==
[~2019-11-18] VITALS: Ht 180.3 cm; Wt 82.0 kg
[2019-11-18] MEDS ORDERED: SODIUM CHLORIDE 0.9% 1,000 ML IV ONE (18:06)
[2019-11-18] MEDS ORDERED: CHLORDIAZEPOXIDE 25MG CAPSULE PO NR (18:15)
[2019-11-18] MEDS ORDERED: MORPHINE SULFATE 4 MG/ML CPJ (NOT FOR IM USE) IV STA (19:02)
[2019-11-18 19:16] LABS: BASOPHILS % 0.8 % (0.0-2.0); EOSINOPHILS % 1.2 % (0.0-5.0); HEMATOCRIT. 33.9 % (42.0-52.0); HEMOGLOBIN. 10.9 g/dL (14.0-18.0); LYMPHOCYTES % 34.9 % (20.0-50.0); MEAN CORPUSCULAR HEMOGLOBIN 27.6 pg (28.0-32.0); MONOCYTES % 12.2 % (2.0-8.0); NEUTROPHILS % 50.9 % (40.0-76.0); RED BLOOD CELL COUNT 3.94 mill/uL (4.7-6.1); RED CELL DISTRIBUTION WIDTH 17.7 % (11.6-14.6)
[2019-11-18 19:22] LABS: CHLORIDE 111 mEq/L (98-107)
[2019-11-18 19:31] LABS: MEAN PLATELET VOLUME 7.4 fl (7.4-10.4); PLATELET 106 x1000/uL (130-400)
[2019-11-18 19:34] LABS: CLARITY URINE CLEAR (CLEAR); COLOR URINE YELLOW (YELLOW); KETONES URINE NEGATIVE (NEGATIVE); LEUKOCYTE ESTERASE URINE NEGATIVE (NEGATIVE); NITRITE URINE NEGATIVE (NEGATIVE); OCCULT BLOOD URINE NEGATIVE (NEGATIVE); PROTEIN URINE NEGATIVE (NEGATIVE); SPECIFIC GRAVITY URINE 1.009 (1.005-1.030); UROBILINOGEN URINE 0.2 E.U./dL (0.2-1.0)
[2019-11-18 20:01] LABS: ETHANOL BLOOD 474 mg/dL
[2019-11-18 20:01] LABS: *AMPHETAMINES SCREEN URINE NEGATIVE (NEGATIVE); *BARBITURATES SCREEN URINE NEGATIVE (NEGATIVE)
[2019-11-18 20:02] LABS: *BENZODIAZEPINES SCREEN URINE NEGATIVE (NEGATIVE); *COCAINE SCREEN URINE NEGATIVE (NEGATIVE); CANNABINOID URINE SCREEN NEGATIVE (NEGATIVE); METHADONE URINE SCREEN NEGATIVE (NEGATIVE); OPIATES URINE SCREEN NEGATIVE (NEGATIVE); PHENCYCLIDINE URINE SCREEN NEGATIVE (NEGATIVE)
[2019-11-19] MEDS ORDERED: CHLORDIAZEPOXIDE 25MG CAPSULE PO ONE (01:45)
[2019-11-19 02:12] VITALS: BP 125/78
[2020-01-22] MEDS ORDERED: CHLO5CAP3 MT (05:29)
== END 2019-11-19 02:18 | disposition home or self-care (01) ==
LOC: ER 17:34
DX: K86.0 Alcohol-induced chronic pancreatitis (principal); I10 Essential (primary) hypertension; Z79.899 Other long term (current) drug therapy
CPT/HCPCS: 36415; 80053; 80305; 80320; 81003; 83690; 85025; 93005; 96361; 96374; 99285; J2270; G0480

== ENCOUNTER 2019-12-06 16:17 | Emergency (ER) | payer MEDICAID ==
[~2019-12-06] VITALS: Ht 170.2 cm; Wt 80.0 kg
[2019-12-06 16:42] VITALS: BP 132/80
[2019-12-06] MEDS ORDERED: SODIUM CHLORIDE 0.9% 1,000 ML IV ONE (17:13)
[2019-12-06] MEDS ORDERED: ONDANSETRON HCL 4MG/2ML INJ IV STA (17:13)
[2019-12-06] MEDS ORDERED: LORAZEPAM 2MG/ML CPJ IV ONE (17:30)
[2019-12-06] MEDS ORDERED: FOLIC ACID 1 MG, THIAMINE HCL 100 MG, MVI, ADULT NO.1 10 ML in DEXTROSE 5% WATER 1,000 ML IV ONE ×4 (17:30)
[2019-12-06 17:38] LABS: CHLORIDE 111 mEq/L (98-107)
[2019-12-06 17:39] LABS: HEMATOCRIT. 33.2 % (42.0-52.0); HEMOGLOBIN. 10.8 g/dL (14.0-18.0); MEAN CORPUSCULAR HEMOGLOBIN 27.6 pg (28.0-32.0); MEAN CORPUSCULAR VOLUME 84.8 fL (80.0-94.0); MEAN PLATELET VOLUME 6.4 fl (7.4-10.4); PLATELET 187 x1000/uL (130-400); RED BLOOD CELL COUNT 3.91 mill/uL (4.7-6.1)
[2019-12-06 17:58] LABS: ETHANOL BLOOD 318 mg/dL
[2019-12-06 19:56] LABS: PLATELET ESTIMATE NORMAL
== END 2019-12-06 17:54 | disposition left against medical advice (07) ==
LOC: ER 16:17
DX: F10.129 Alcohol abuse with intoxication, unspecified (principal); R00.0 Tachycardia, unspecified; Y90.9 Presence of alcohol in blood, level not specified
CPT/HCPCS: 36415; 80048; 80320; 83690; 85025; 93005; 96361; 96374; 96375; 99284; J2060; J2405; J3411; J3490; J7030; J7070; G0480

== ENCOUNTER 2019-12-15 19:38 | Emergency (ER) | payer MEDICAID ==
[~2019-12-15] VITALS: Ht 177.8 cm; Wt 91.0 kg
[2019-12-15 19:49] VITALS: BP 100/70
== END 2019-12-15 20:50 | disposition left against medical advice (07) ==
LOC: ER 19:38
DX: R51 Headache (principal); Z53.21 Procedure and treatment not carried out due to patient leaving prior to being seen by health care provider
CPT/HCPCS: 93005

== ENCOUNTER 2020-01-11 11:13 | Emergency (ER) | payer MEDICAID ==
[~2020-01-11] VITALS: Ht 172.7 cm; Wt 80.0 kg
[2020-01-11] MEDS ORDERED: IBUPROFEN 600MG TABLET PO STA (11:26)
[2020-01-11 12:00] LABS: BASOPHILS % 0.4 % (0.0-2.0); CLARITY URINE CLEAR (CLEAR); COLOR URINE YELLOW (YELLOW); EOSINOPHILS % 1.3 % (0.0-5.0); HEMATOCRIT. 34.9 % (42.0-52.0); HEMOGLOBIN. 11.1 g/dL (14.0-18.0); KETONES URINE NEGATIVE (NEGATIVE); LEUKOCYTE ESTERASE URINE NEGATIVE (NEGATIVE); LYMPHOCYTES % 37.4 % (20.0-50.0); MEAN CORPUSCULAR HEMOGLOBIN 27.2 pg (28.0-32.0); MEAN CORPUSCULAR VOLUME 85.4 fL (80.0-94.0); MEAN PLATELET VOLUME 7.3 fl (7.4-10.4); MONOCYTES % 14.3 % (2.0-8.0); NEUTROPHILS % 46.6 % (40.0-76.0); NITRITE URINE NEGATIVE (NEGATIVE); OCCULT BLOOD URINE NEGATIVE (NEGATIVE); PH URINE 5.5 (4.5-8.0); PROTEIN URINE TRACE (NEGATIVE); RED BLOOD CELL COUNT 4.09 mill/uL (4.7-6.1); RED CELL DISTRIBUTION WIDTH 18.2 % (11.6-14.6); SPECIFIC GRAVITY URINE 1.009 (1.005-1.030); UROBILINOGEN URINE 0.2 E.U./dL (0.2-1.0)
[2020-01-11 12:05] LABS: CHLORIDE 105 mEq/L (98-107)
[2020-01-11 12:14] LABS: PLATELET 46 x1000/uL (130-400)
[2020-01-11 12:15] LABS: *AMPHETAMINES SCREEN URINE NEGATIVE (NEGATIVE); *BARBITURATES SCREEN URINE NEGATIVE (NEGATIVE); *BENZODIAZEPINES SCREEN URINE NEGATIVE (NEGATIVE); *COCAINE SCREEN URINE NEGATIVE (NEGATIVE)
[2020-01-11 12:16] LABS: CANNABINOID URINE SCREEN NEGATIVE (NEGATIVE); METHADONE URINE SCREEN NEGATIVE (NEGATIVE); OPIATES URINE SCREEN NEGATIVE (NEGATIVE); PHENCYCLIDINE URINE SCREEN NEGATIVE (NEGATIVE)
[2020-01-11 12:25] LABS: ETHANOL BLOOD 453 mg/dL
[2020-01-11 13:00] VITALS: BP 110/70
[2020-01-22] MEDS ORDERED: CHLO5CAP3 MT (05:29)
== END 2020-01-11 13:36 | disposition left against medical advice (07) ==
LOC: ER 11:13
DX: F10.129 Alcohol abuse with intoxication, unspecified (principal); Y90.8 Blood alcohol level of 240 mg/100 ml or more; D69.6 Thrombocytopenia, unspecified; K85.90 Acute pancreatitis without necrosis or infection, unspecified; I10 Essential (primary) hypertension
CPT/HCPCS: 36415; 80053; 80305; 80320; 81003; 85025; 99283; G0480

== ENCOUNTER 2020-02-06 19:57 | Emergency (ER) | payer OTHER ==
[~2020-02-06] VITALS: Ht 170.2 cm; Wt 82.0 kg
[2020-02-06] MEDS: ASPIRIN 325MG EC TABLET PO ONE (21:27)
[2020-02-06] MEDS: ONDANSETRON 4MG ODT PO STA (21:27)
[2020-02-06 21:48] LABS: BASOPHILS % 0.6 % (0.0-2.0); EOSINOPHILS % 1.8 % (0.0-5.0); HEMATOCRIT. 35.7 % (42.0-52.0); HEMOGLOBIN. 11.5 g/dL (14.0-18.0); LYMPHOCYTES % 35.7 % (20.0-50.0); MEAN CORPUSCULAR HEMOGLOBIN 27.6 pg (28.0-32.0); MEAN CORPUSCULAR VOLUME 85.8 fL (80.0-94.0); MEAN PLATELET VOLUME 6.1 fl (7.4-10.4); MONOCYTES % 8.7 % (2.0-8.0); NEUTROPHILS % 53.2 % (40.0-76.0); PLATELET 266 x1000/uL (130-400); RED BLOOD CELL COUNT 4.16 mill/uL (4.7-6.1); RED CELL DISTRIBUTION WIDTH 18.1 % (11.6-14.6)
[2020-02-06 21:49] LABS: CLARITY URINE CLEAR (CLEAR); COLOR URINE YELLOW (YELLOW); KETONES URINE NEGATIVE (NEGATIVE); LEUKOCYTE ESTERASE URINE NEGATIVE (NEGATIVE); NITRITE URINE NEGATIVE (NEGATIVE); OCCULT BLOOD URINE NEGATIVE (NEGATIVE); PROTEIN URINE NEGATIVE (NEGATIVE); SPECIFIC GRAVITY URINE 1.007 (1.005-1.030); UROBILINOGEN URINE 0.2 E.U./dL (0.2-1.0)
[2020-02-06 21:51] LABS: CHLORIDE 109 mEq/L (98-107)
[2020-02-06 21:55] LABS: PROTHROMBIN TIME 10.9 sec (9.6-11.0)
[2020-02-07] MEDS: FAMOTIDINE 20MG TABLET PO NR (00:15)
[2020-02-07 06:15] VITALS: BP 145/86
== END 2020-02-07 06:32 | disposition home or self-care (01) ==
LOC: ER 19:57
DX: R10.9 Unspecified abdominal pain (principal); F10.129 Alcohol abuse with intoxication, unspecified; Y90.8 Blood alcohol level of 240 mg/100 ml or more
CPT/HCPCS: 36415; 71045; 80053; 80320; 81003; 83690; 84484; 85025; 85610; 93005; 99285; Q0162; G0480

== ENCOUNTER 2020-02-16 10:58 | Emergency (ER) | payer MEDICAID ==
[~2020-02-16] VITALS: Ht 180.3 cm; Wt 91.0 kg
[~2020-02-16 10:58] MED LIST changes: -ACET5SOL2 PO; +AMLO5TAB88 PO; -B50 MT; +FOLI-43 PO; +L25 PO; -LORA2TAB95 PO; +THIA100T72 PO
[2020-02-16] MEDS ORDERED: IBUPROFEN 600MG TABLET PO ONE (11:45)
[2020-02-16 12:01] VITALS: BP 119/71
== END 2020-02-16 12:31 | disposition left against medical advice (07) ==
LOC: ER 10:58
DX: M79.675 Pain in left toe(s) (principal); F17.290 Nicotine dependence, other tobacco product, uncomplicated; F10.20 Alcohol dependence, uncomplicated; Y90.0 Blood alcohol level of less than 20 mg/100 ml; Z79.899 Other long term (current) drug therapy
CPT/HCPCS: 99282

== ENCOUNTER 2020-02-22 13:50 | Emergency (ER) | payer MEDICAID ==
[~2020-02-22] VITALS: Ht 175.3 cm; Wt 78.0 kg
[2020-02-22] MEDS ORDERED: SODIUM CHLORIDE 0.9% 1,000 ML IV ONE (16:15)
[2020-02-22 16:24] LABS: HEMATOCRIT. 32.5 % (42.0-52.0); HEMOGLOBIN. 10.6 g/dL (14.0-18.0); MEAN CORPUSCULAR HEMOGLOBIN 28.2 pg (28.0-32.0); MEAN CORPUSCULAR VOLUME 86.2 fL (80.0-94.0); MEAN PLATELET VOLUME 7.1 fl (7.4-10.4); PLATELET 138 x1000/uL (130-400); RED BLOOD CELL COUNT 3.77 mill/uL (4.7-6.1); RED CELL DISTRIBUTION WIDTH 17.9 % (11.6-14.6)
[2020-02-22 16:30] LABS: CHLORIDE 106 mEq/L (98-107)
[2020-02-22 16:32] LABS: PROTHROMBIN TIME 10.9 sec (9.6-11.0)
[2020-02-22 17:03] LABS: CLARITY URINE CLEAR (CLEAR); COLOR URINE YELLOW (YELLOW); KETONES URINE NEGATIVE (NEGATIVE); LEUKOCYTE ESTERASE URINE NEGATIVE (NEGATIVE); NITRITE URINE NEGATIVE (NEGATIVE); OCCULT BLOOD URINE NEGATIVE (NEGATIVE); PH URINE 5.5 (4.5-8.0); PROTEIN URINE NEGATIVE (NEGATIVE); SPECIFIC GRAVITY URINE 1.006 (1.005-1.030); UROBILINOGEN URINE 0.2 E.U./dL (0.2-1.0)
[2020-02-22 17:07] LABS: PLATELET ESTIMATE NORMAL
[2020-02-22 17:38] VITALS: BP 131/54
== END 2020-02-22 17:39 | disposition home or self-care (01) ==
LOC: ER 13:50
DX: F10.129 Alcohol abuse with intoxication, unspecified (principal); Y90.9 Presence of alcohol in blood, level not specified
CPT/HCPCS: 36415; 80053; 81003; 85025; 85610; 96360; 99283; J7030

== ENCOUNTER 2020-03-02 19:03 | Emergency (ER) | payer MEDICAID ==
[~2020-03-02] VITALS: Ht 172.7 cm; Wt 82.0 kg
[2020-03-02 20:21] LABS: BASOPHILS % 0.3 % (0.0-2.0); EOSINOPHILS % 1.8 % (0.0-5.0); HEMATOCRIT. 30.4 % (42.0-52.0); HEMOGLOBIN. 10.1 g/dL (14.0-18.0); LYMPHOCYTES % 36.6 % (20.0-50.0); MEAN CORPUSCULAR HEMOGLOBIN 28.1 pg (28.0-32.0); MEAN CORPUSCULAR VOLUME 84.6 fL (80.0-94.0); MEAN PLATELET VOLUME 6.4 fl (7.4-10.4); MONOCYTES % 10.4 % (2.0-8.0); NEUTROPHILS % 50.9 % (40.0-76.0); PLATELET 145 x1000/uL (130-400); RED CELL DISTRIBUTION WIDTH 17.2 % (11.6-14.6)
[2020-03-02 20:25] LABS: CHLORIDE 103 mEq/L (98-107)
[2020-03-02 20:50] LABS: ETHANOL BLOOD 353 mg/dL
[2020-03-02] MEDS ORDERED: FOLIC ACID 1 MG, THIAMINE HCL 100 MG, MVI, ADULT NO.1 10 ML in DEXTROSE 5% WATER 1,000 ML IV SCH ×4 (23:00)
[2020-03-03 06:27] VITALS: BP 125/65
== END 2020-03-03 06:30 | disposition home or self-care (01) ==
LOC: ER 19:03
DX: T51.0X1A Toxic effect of ethanol, accidental (unintentional), initial encounter (principal); G92 Toxic encephalopathy; E87.2 Acidosis; I10 Essential (primary) hypertension; Y90.8 Blood alcohol level of 240 mg/100 ml or more; Z87.19 Personal history of other diseases of the digestive system; Z79.899 Other long term (current) drug therapy; Y92.018 Other place in single-family (private) house as the place of occurrence of the external cause
CPT/HCPCS: 36415; 71045; 76700; 80053; 80320; 83605; 83690; 85025; 93005; 96365; 96366; 99285; J3411; J3490; J7070; G0480

== ENCOUNTER 2020-03-09 16:04 | Emergency (ER) | payer MEDICAID ==
[~2020-03-09] VITALS: Ht 165.1 cm; Wt 79.0 kg
[2020-03-09 16:15] VITALS: BP 130/83
== END 2020-03-09 16:53 | disposition left against medical advice (07) ==
LOC: ER 16:04
DX: Z53.21 Procedure and treatment not carried out due to patient leaving prior to being seen by health care provider (principal)

== ENCOUNTER 2020-03-09 18:48 | Emergency (ER) | payer MEDICAID ==
[~2020-03-09] VITALS: Ht 177.8 cm; Wt 90.0 kg
[2020-03-10] MEDS ORDERED: KETOROLAC 30MG/ML VIAL IM ONE (01:30)
[2020-03-10 03:03] VITALS: BP 138/82
== END 2020-03-10 03:04 | disposition home or self-care (01) ==
LOC: ER 18:48
DX: M19.90 Unspecified osteoarthritis, unspecified site (principal); F10.229 Alcohol dependence with intoxication, unspecified; Y90.0 Blood alcohol level of less than 20 mg/100 ml; Z79.899 Other long term (current) drug therapy
CPT/HCPCS: 72100; 96372; 99283; J1885

== ENCOUNTER 2020-03-25 12:30 | Emergency (ER) | payer MEDICAID ==
[~2020-03-25] VITALS: Ht 180.3 cm; Wt 90.0 kg
[2020-03-25 14:12] VITALS: BP 125/90
== END 2020-03-25 14:13 | disposition home or self-care (01) ==
LOC: ER 12:30
DX: R51.9 Headache, unspecified (principal); F10.20 Alcohol dependence, uncomplicated; Y90.0 Blood alcohol level of less than 20 mg/100 ml; Z79.899 Other long term (current) drug therapy
CPT/HCPCS: 93005; 99283

== ENCOUNTER 2020-04-14 16:26 | Emergency (ER) | payer MEDICAID ==
[~2020-04-14] VITALS: Ht 180.3 cm; Wt 82.0 kg
[2020-04-14 16:31] VITALS: BP 142/86
== END 2020-04-14 16:48 | disposition home or self-care (01) ==
LOC: ER 16:26
DX: F10.129 Alcohol abuse with intoxication, unspecified (principal); Y90.9 Presence of alcohol in blood, level not specified
CPT/HCPCS: 99283

== ENCOUNTER 2020-04-14 18:34 | Emergency (ER) | payer MEDICAID ==
[~2020-04-14] VITALS: Ht 175.3 cm; Wt 77.0 kg
[2020-04-14 19:18] VITALS: BP 140/90
[2020-04-14] MEDS ORDERED: IBUPROFEN 600MG TABLET PO ONE (19:45)
[2020-04-14] MEDS ORDERED: ACETAMINOPHEN 325MG TABLET PO ONE (19:45)
== END 2020-04-14 20:46 | disposition home or self-care (01) ==
LOC: ER 18:34
DX: F10.129 Alcohol abuse with intoxication, unspecified (principal); Y90.9 Presence of alcohol in blood, level not specified
CPT/HCPCS: 99283

== ENCOUNTER 2020-05-14 17:50 | Emergency (ER) | payer MEDICAID ==
[~2020-05-14] VITALS: Ht 177.8 cm; Wt 75.0 kg
[2020-05-14] MEDS ORDERED: MAGNESIUM/ALUMINUM HYDROXIDE/SIMETHICONE 30ML UDC PO STA (18:25)
[2020-05-14] MEDS ORDERED: VISCOUS LIDOCAINE 2% 15 ML UDC PO STA (18:25)
[2020-05-14 18:46] LABS: BASOPHILS % 0.4 % (0.0-2.0); EOSINOPHILS % 1.8 % (0.0-5.0); HEMATOCRIT. 33.3 % (42.0-52.0); HEMOGLOBIN. 10.5 g/dL (14.0-18.0); MEAN CORPUSCULAR HEMOGLOBIN 25.7 pg (28.0-32.0); MEAN CORPUSCULAR VOLUME 81.2 fL (80.0-94.0); MONOCYTES % 9.7 % (2.0-8.0); NEUTROPHILS % 46.1 % (40.0-76.0); RED CELL DISTRIBUTION WIDTH 17.4 % (11.6-14.6)
[2020-05-14 18:52] LABS: CHLORIDE 111 mEq/L (98-107)
[2020-05-14 19:18] LABS: ETHANOL BLOOD 480 mg/dL
[2020-05-14 19:31] LABS: MEAN PLATELET VOLUME 6.8 fl (7.4-10.4)
[2020-05-15 00:18] VITALS: BP 121/74
[2020-05-15 11:44] LABS: PLATELET 50 x1000/uL (130-400)
== END 2020-05-15 00:20 | disposition home or self-care (01) ==
LOC: ER 17:50
DX: F10.129 Alcohol abuse with intoxication, unspecified (principal); K85.90 Acute pancreatitis without necrosis or infection, unspecified; D69.6 Thrombocytopenia, unspecified; I49.9 Cardiac arrhythmia, unspecified; Y90.8 Blood alcohol level of 240 mg/100 ml or more
CPT/HCPCS: 36415; 80053; 80320; 85025; 93005; 99284; G0480

== ENCOUNTER 2020-06-04 13:47 | Emergency (ER) | payer MEDICAID ==
[~2020-06-04] VITALS: Ht 177.8 cm; Wt 82.0 kg
[2020-06-04 13:54] VITALS: BP 116/61
[2020-06-04] MEDS ORDERED: ACETAMINOPHEN 325MG TABLET PO STA (14:28)
[2020-06-04 15:12] LABS: BASOPHILS % 0.7 % (0.0-2.0); HEMATOCRIT. 32.7 % (42.0-52.0); HEMOGLOBIN. 10.6 g/dL (14.0-18.0); LYMPHOCYTES % 31.7 % (20.0-50.0); MEAN CORPUSCULAR HEMOGLOBIN 25.9 pg (28.0-32.0); MEAN CORPUSCULAR VOLUME 80.2 fL (80.0-94.0); MONOCYTES % 6.4 % (2.0-8.0); NEUTROPHILS % 60.2 % (40.0-76.0); PLATELET 227 x1000/uL (130-400); RED BLOOD CELL COUNT 4.08 mill/uL (4.7-6.1); RED CELL DISTRIBUTION WIDTH 18.4 % (11.6-14.6)
[2020-06-04 15:26] LABS: CHLORIDE 108 mEq/L (98-107)
[2020-06-04 15:51] LABS: ETHANOL BLOOD 302 mg/dL
== END 2020-06-04 16:31 | disposition home or self-care (01) ==
LOC: ER 13:59
DX: K85.90 Acute pancreatitis without necrosis or infection, unspecified (principal); F10.21 Alcohol dependence, in remission
CPT/HCPCS: 36415; 74176; 80048; 80320; 85025; 99284; G0480

== ENCOUNTER 2020-06-05 19:14 | Emergency (ER) | payer MEDICAID ==
[~2020-06-05] VITALS: Ht 175.3 cm; Wt 91.0 kg
[2020-06-05] MEDS ORDERED: SODIUM CHLORIDE 0.9% 1,000 ML IV ONE ×2 (19:30→21:00)
[2020-06-05 22:21] LABS: CHLORIDE 112 mEq/L (98-107)
[2020-06-05 22:28] LABS: BASOPHILS % 0.4 % (0.0-2.0); EOSINOPHILS % 1.2 % (0.0-5.0); HEMATOCRIT. 34.8 % (42.0-52.0); HEMOGLOBIN. 10.9 g/dL (14.0-18.0); MEAN CORPUSCULAR HEMOGLOBIN 25.3 pg (28.0-32.0); MEAN PLATELET VOLUME 6.4 fl (7.4-10.4); MONOCYTES % 7.3 % (2.0-8.0); NEUTROPHILS % 58.1 % (40.0-76.0); PLATELET 212 x1000/uL (130-400); RED CELL DISTRIBUTION WIDTH 18.2 % (11.6-14.6)
[2020-06-05 22:43] LABS: ETHANOL BLOOD 375 mg/dL
[2020-06-05] MEDS ORDERED: METOCLOPRAMIDE HCL 10MG/2ML VIAL IV ONE (23:00)
[2020-06-06 03:00] LABS: CLARITY URINE CLEAR (CLEAR); COLOR URINE YELLOW (YELLOW); KETONES URINE NEGATIVE (NEGATIVE); LEUKOCYTE ESTERASE URINE NEGATIVE (NEGATIVE); NITRITE URINE NEGATIVE (NEGATIVE); OCCULT BLOOD URINE NEGATIVE (NEGATIVE); PROTEIN URINE NEGATIVE (NEGATIVE); SPECIFIC GRAVITY URINE 1.018 (1.005-1.030); UROBILINOGEN URINE 0.2 E.U./dL (0.2-1.0)
[2020-06-06 03:09] LABS: CANNABINOID URINE SCREEN NEGATIVE (NEGATIVE); METHADONE URINE SCREEN NEGATIVE (NEGATIVE); OPIATES URINE SCREEN NEGATIVE (NEGATIVE); PHENCYCLIDINE URINE SCREEN NEGATIVE (NEGATIVE)
[2020-06-06 03:10] LABS: *AMPHETAMINES SCREEN URINE NEGATIVE (NEGATIVE); *BARBITURATES SCREEN URINE NEGATIVE (NEGATIVE); *BENZODIAZEPINES SCREEN URINE PRESUMTIVE POSITIVE (NEGATIVE); *COCAINE SCREEN URINE NEGATIVE (NEGATIVE)
[2020-06-06] MEDS ORDERED: LORA-250 MT (03:22)
[2020-06-06 03:30] VITALS: BP 126/66
== END 2020-06-06 05:49 | disposition home or self-care (01) ==
LOC: ER 19:14
DX: F10.129 Alcohol abuse with intoxication, unspecified (principal); Y90.8 Blood alcohol level of 240 mg/100 ml or more; G92 Toxic encephalopathy; I10 Essential (primary) hypertension; F17.200 Nicotine dependence, unspecified, uncomplicated
CPT/HCPCS: 36415; 71045; 80053; 80305; 80307; 80320; 80329; 81003; 82140; 83690; 85025; 96361; 96374; 99284; J2765; J7030; G0480

== ENCOUNTER 2020-07-02 19:50 | Emergency (ER) | payer MEDICAID ==
[~2020-07-02] VITALS: Ht 170.2 cm; Wt 77.0 kg
[~2020-07-02 19:50] MED LIST changes: +LORA-250 MT
[2020-07-02 23:09] LABS: BASOPHILS % 0.3 % (0.0-2.0); EOSINOPHILS % 0.4 % (0.0-5.0); HEMATOCRIT. 32.2 % (42.0-52.0); HEMOGLOBIN. 10.5 g/dL (14.0-18.0); LYMPHOCYTES % 30.7 % (20.0-50.0); MEAN CORPUSCULAR HEMOGLOBIN 26.2 pg (28.0-32.0); MEAN CORPUSCULAR VOLUME 80.9 fL (80.0-94.0); MEAN PLATELET VOLUME 6.9 fl (7.4-10.4); NEUTROPHILS % 56.6 % (40.0-76.0); PLATELET 75 x1000/uL (130-400); RED BLOOD CELL COUNT 3.98 mill/uL (4.7-6.1); RED CELL DISTRIBUTION WIDTH 19.6 % (11.6-14.6)
[2020-07-02 23:16] LABS: CHLORIDE 96 mEq/L (98-107)
[2020-07-02 23:45] VITALS: BP 148/82
== END 2020-07-03 00:12 | disposition home or self-care (01) ==
LOC: ER 19:50
DX: F10.129 Alcohol abuse with intoxication, unspecified (principal); I10 Essential (primary) hypertension; Y90.9 Presence of alcohol in blood, level not specified
CPT/HCPCS: 36415; 71045; 80053; 83735; 83880; 84484; 85025; 93005; 99285

== ENCOUNTER 2020-07-10 18:59 | Emergency (ER) | payer MEDICAID ==
[~2020-07-10] VITALS: Ht 180.3 cm; Wt 79.0 kg
[2020-07-10] MEDS ORDERED: ACETAMINOPHEN 325MG TABLET PO STA (21:38)
[2020-07-10] MEDS ORDERED: MAGNESIUM/ALUMINUM HYDROXIDE/SIMETHICONE 30ML UDC PO STA (21:38)
[2020-07-10] MEDS ORDERED: FAMOTIDINE 20MG TABLET PO ONE (21:45)
[2020-07-10 22:06] LABS: BASOPHILS % 0.4 % (0.0-2.0); HEMOGLOBIN. 10.1 g/dL (14.0-18.0); LYMPHOCYTES % 40.5 % (20.0-50.0); MEAN CORPUSCULAR VOLUME 82.2 fL (80.0-94.0); MEAN PLATELET VOLUME 6.3 fl (7.4-10.4); MONOCYTES % 12.1 % (2.0-8.0); PLATELET 84 x1000/uL (130-400); RED BLOOD CELL COUNT 3.89 mill/uL (4.7-6.1); RED CELL DISTRIBUTION WIDTH 19.4 % (11.6-14.6)
[2020-07-10 22:08] LABS: CHLORIDE 108 mEq/L (98-107)
[2020-07-11] MEDS ORDERED: ACET-2708 MT (00:51)
[2020-07-11 01:11] VITALS: BP 136/73
== END 2020-07-11 01:14 | disposition home or self-care (01) ==
LOC: ER 18:59
DX: R10.13 Epigastric pain (principal); I10 Essential (primary) hypertension; F17.200 Nicotine dependence, unspecified, uncomplicated
CPT/HCPCS: 36415; 80053; 85025; 93005; 99284

== ENCOUNTER 2020-07-18 19:08 | Emergency (ER) | payer MEDICAID ==
[~2020-07-18] VITALS: Ht 170.2 cm; Wt 75.0 kg
[~2020-07-18 19:08] MED LIST changes: +ACET-2708 MT
[2020-07-18] MEDS ORDERED: SODIUM CHLORIDE 0.9% 1,000 ML IV ONE (19:30)
[2020-07-18] MEDS ORDERED: CYANOCOBALAMIN 1000MCG/ML VIAL IM ONE (19:30)
[2020-07-18 20:10] LABS: HEMATOCRIT. 34.2 % (42.0-52.0); HEMOGLOBIN. 10.5 g/dL (14.0-18.0); MEAN CORPUSCULAR HEMOGLOBIN 25.5 pg (28.0-32.0); MEAN CORPUSCULAR VOLUME 83.2 fL (80.0-94.0); MEAN PLATELET VOLUME 6.9 fl (7.4-10.4); PLATELET 70 x1000/uL (130-400); RED BLOOD CELL COUNT 4.11 mill/uL (4.7-6.1); RED CELL DISTRIBUTION WIDTH 19.2 % (11.6-14.6)
[2020-07-18 20:13] LABS: CLARITY URINE CLEAR (CLEAR); COLOR URINE YELLOW (YELLOW); KETONES URINE NEGATIVE (NEGATIVE); LEUKOCYTE ESTERASE URINE NEGATIVE (NEGATIVE); NITRITE URINE NEGATIVE (NEGATIVE); OCCULT BLOOD URINE NEGATIVE (NEGATIVE); PH URINE 5.5 (4.5-8.0); PROTEIN URINE NEGATIVE (NEGATIVE); SPECIFIC GRAVITY URINE 1.005 (1.005-1.030); UROBILINOGEN URINE 0.2 E.U./dL (0.2-1.0)
[2020-07-18] MEDS ORDERED: CHLORDIAZEPOXIDE 5 MG CAPSULE PO ONE (20:15)
[2020-07-18] MEDS ORDERED: ACETAMINOPHEN 325MG TABLET PO ONE (20:15)
[2020-07-18 20:16] LABS: CHLORIDE 108 mEq/L (98-107)
[2020-07-18 20:19] LABS: PROTHROMBIN TIME 10.9 sec (9.6-11.0)
[2020-07-18 20:23] LABS: *AMPHETAMINES SCREEN URINE NEGATIVE (NEGATIVE); *BARBITURATES SCREEN URINE NEGATIVE (NEGATIVE); *BENZODIAZEPINES SCREEN URINE NEGATIVE (NEGATIVE); *COCAINE SCREEN URINE NEGATIVE (NEGATIVE)
[2020-07-18 20:24] LABS: CANNABINOID URINE SCREEN NEGATIVE (NEGATIVE); METHADONE URINE SCREEN NEGATIVE (NEGATIVE); OPIATES URINE SCREEN NEGATIVE (NEGATIVE); PHENCYCLIDINE URINE SCREEN NEGATIVE (NEGATIVE)
[2020-07-18 20:30] LABS: ETHANOL BLOOD 445 mg/dL
[2020-07-18] MEDS ORDERED: FOLIC ACID 1 MG, THIAMINE HCL 100 MG, MVI, ADULT NO.1 10 ML in DEXTROSE 5% WATER 1,000 ML IV ONE (20:45)
[2020-07-18 21:16] LABS: PLATELET ESTIMATE DECREASED
[2020-07-18] MEDS ORDERED: FOLIC ACID 1 MG, THIAMINE HCL 100 MG in DEXTROSE 5% WATER 1,000 ML IV ONE (21:30)
[2020-07-18] MEDS ORDERED: MULTIVITAMINS,THER W-MINERALS TABLET PO NR (21:30)
[2020-07-19] MEDS ORDERED: METOCLOPRAMIDE HCL 10MG/2ML VIAL IV ONE (01:30)
[2020-07-19 05:30] VITALS: BP 125/55
[2020-07-19] MEDS ORDERED: CHLORDIAZEPOXIDE 25MG CAPSULE PO ONE (07:00)
[2020-07-20] MEDS ORDERED: ONDA4TAB5 MT (19:16)
== END 2020-07-19 07:00 | disposition home or self-care (01) ==
LOC: ER 19:08
DX: F10.229 Alcohol dependence with intoxication, unspecified (principal); Y90.8 Blood alcohol level of 240 mg/100 ml or more; Z79.899 Other long term (current) drug therapy
CPT/HCPCS: 36415; 80053; 80305; 80320; 81003; 85025; 85610; 96361; 96365; 96372; 96375; 99285; J2765; J3411; J3420; J3490; J7030; J7070; Z7610; G0480

== ENCOUNTER 2020-07-20 13:49 | Emergency (ER) | payer MEDICAID ==
[~2020-07-20] VITALS: Ht 172.7 cm; Wt 69.0 kg
[2020-07-20 13:52] VITALS: BP 174/88
[2020-07-20] MEDS ORDERED: ONDANSETRON HCL 4MG/2ML INJ IV STA (14:09)
[2020-07-20] MEDS ORDERED: PANTOPRAZOLE SODIUM 40 MG/VIAL IV STA (14:09)
[2020-07-20] MEDS ORDERED: SODIUM CHLORIDE 0.9% 1,000 ML IV ONE (14:15)
[2020-07-20 15:00] LABS: HEMATOCRIT. 33.7 % (42.0-52.0); HEMOGLOBIN. 10.6 g/dL (14.0-18.0); MEAN CORPUSCULAR VOLUME 82.5 fL (80.0-94.0); MEAN PLATELET VOLUME 6.6 fl (7.4-10.4); PLATELET 72 x1000/uL (130-400); RED BLOOD CELL COUNT 4.09 mill/uL (4.7-6.1); RED CELL DISTRIBUTION WIDTH 20.2 % (11.6-14.6)
[2020-07-20 15:01] LABS: CHLORIDE 111 mEq/L (98-107)
[2020-07-20 15:35] LABS: PLATELET ESTIMATE DECREASED
[2020-07-20 15:48] LABS: ETHANOL BLOOD 417 mg/dL
[2020-07-20 16:01] LABS: CLARITY URINE CLEAR (CLEAR); COLOR URINE YELLOW (YELLOW); KETONES URINE NEGATIVE (NEGATIVE); LEUKOCYTE ESTERASE URINE NEGATIVE (NEGATIVE); NITRITE URINE NEGATIVE (NEGATIVE); OCCULT BLOOD URINE NEGATIVE (NEGATIVE); PROTEIN URINE NEGATIVE (NEGATIVE); SPECIFIC GRAVITY URINE 1.007 (1.005-1.030); UROBILINOGEN URINE 0.2 E.U./dL (0.2-1.0)
[2020-07-20 16:12] LABS: *AMPHETAMINES SCREEN URINE NEGATIVE (NEGATIVE); *BARBITURATES SCREEN URINE NEGATIVE (NEGATIVE); *BENZODIAZEPINES SCREEN URINE PRESUMTIVE POSITIVE (NEGATIVE); *COCAINE SCREEN URINE NEGATIVE (NEGATIVE)
[2020-07-20 16:13] LABS: METHADONE URINE SCREEN NEGATIVE (NEGATIVE); OPIATES URINE SCREEN NEGATIVE (NEGATIVE)
[2020-07-20 16:14] LABS: CANNABINOID URINE SCREEN NEGATIVE (NEGATIVE); PHENCYCLIDINE URINE SCREEN NEGATIVE (NEGATIVE)
[2020-07-20] MEDS ORDERED: CHLORDIAZEPOXIDE 25MG CAPSULE PO ONE (16:15)
[2020-07-20] MEDS ORDERED: ONDA4TAB5 MT (19:16)
== END 2020-07-20 18:00 | disposition left against medical advice (07) ==
LOC: ER 13:49
DX: F10.229 Alcohol dependence with intoxication, unspecified (principal); R51.9 Headache, unspecified; I10 Essential (primary) hypertension; Y90.8 Blood alcohol level of 240 mg/100 ml or more; W01.0XXA Fall on same level from slipping, tripping and stumbling without subsequent striking against object, initial encounter; Y93.89 Activity, other specified; Y92.018 Other place in single-family (private) house as the place of occurrence of the external cause
CPT/HCPCS: 36415; 70450; 71045; 80053; 80305; 80320; 81003; 83690; 85025; 96361; 96374; 96375; 99285; C9113; J2405; J7030; Z7610; G0480

== ENCOUNTER 2020-08-29 13:03 | Emergency (ER) | payer MEDICAID, OTHER ==
[~2020-08-29] VITALS: Ht 172.7 cm; Wt 80.0 kg
[~2020-08-29 13:03] MED LIST changes: +ONDA4TAB5 MT
[2020-08-29 13:05] VITALS: BP 136/78
[2020-08-29] MEDS ORDERED: FOLIC ACID 1 MG, THIAMINE HCL 100 MG, MVI, ADULT NO.1 10 ML in DEXTROSE 5% WATER 1,000 ML IV ONE (13:30)
[2020-08-29] MEDS ORDERED: ACETAMINOPHEN 325MG TABLET PO ONE (13:30)
[2020-08-29] MEDS ORDERED: DEXT 5%/0.9% NACL 1,000 ML IV ONE (13:30)
[2020-08-29 13:41] LABS: CLARITY URINE CLEAR (CLEAR); COLOR URINE YELLOW (YELLOW); KETONES URINE NEGATIVE (NEGATIVE); LEUKOCYTE ESTERASE URINE NEGATIVE (NEGATIVE); NITRITE URINE NEGATIVE (NEGATIVE); OCCULT BLOOD URINE NEGATIVE (NEGATIVE); PROTEIN URINE NEGATIVE (NEGATIVE); SPECIFIC GRAVITY URINE 1.003 (1.005-1.030); UROBILINOGEN URINE 0.2 E.U./dL (0.2-1.0)
[2020-08-29 13:42] LABS: BASOPHILS % 0.2 % (0.0-2.0); EOSINOPHILS % 0.6 % (0.0-5.0); HEMATOCRIT. 28.6 % (42.0-52.0); HEMOGLOBIN. 9.2 g/dL (14.0-18.0); LYMPHOCYTES % 29.8 % (20.0-50.0); MEAN CORPUSCULAR HEMOGLOBIN 25.9 pg (28.0-32.0); MEAN CORPUSCULAR VOLUME 80.5 fL (80.0-94.0); MEAN PLATELET VOLUME 6.4 fl (7.4-10.4); MONOCYTES % 8.7 % (2.0-8.0); NEUTROPHILS % 60.7 % (40.0-76.0); PLATELET 185 x1000/uL (130-400); RED BLOOD CELL COUNT 3.55 mill/uL (4.7-6.1); RED CELL DISTRIBUTION WIDTH 19.5 % (11.6-14.6)
[2020-08-29 13:44] LABS: CHLORIDE 99 mEq/L (98-107)
[2020-08-29 13:48] LABS: PROTHROMBIN TIME 10.9 sec (9.6-11.0)
== END 2020-08-29 15:56 | disposition left against medical advice (07) ==
LOC: ER 13:15
DX: R10.9 Unspecified abdominal pain (principal)
CPT/HCPCS: 36415; 80053; 81003; 83690; 83880; 84484; 85025; 85610; 96365; 99284; J3411; J3490; J7042; J7070

== ENCOUNTER 2020-09-16 15:03 | Emergency (ER) | payer MEDICAID ==
[~2020-09-16] VITALS: Ht 180.3 cm; Wt 109.0 kg
[2020-09-16 15:05] VITALS: BP 121/74
[2020-09-16] MEDS ORDERED: SODIUM CHLORIDE 0.9% 1,000 ML IV ONE (15:15)
[2020-09-16] MEDS ORDERED: FAMOTIDINE 20MG/2ML VIAL IV STA (15:15)
[2020-09-16] MEDS ORDERED: ONDANSETRON HCL 4MG/2ML INJ IV STA (15:15)
[2020-09-16] MEDS ORDERED: MAGNESIUM/ALUMINUM HYDROXIDE/SIMETHICONE 30ML UDC PO STA (15:15)
== END 2020-09-16 15:27 | disposition left against medical advice (07) ==
LOC: ER 15:20
DX: F10.10 Alcohol abuse, uncomplicated (principal); Y90.9 Presence of alcohol in blood, level not specified; R10.13 Epigastric pain; F17.200 Nicotine dependence, unspecified, uncomplicated
CPT/HCPCS: 99283; J7030

== ENCOUNTER 2020-09-27 20:06 | Emergency (ER) | payer MEDICAID ==
[~2020-09-27] VITALS: Ht 170.2 cm; Wt 82.0 kg
[2020-09-27] MEDS ORDERED: SODIUM CHLORIDE 0.9% 1,000 ML IV ONE (21:00)
[2020-09-27 21:18] LABS: BASOPHILS % 0.4 % (0.0-2.0); EOSINOPHILS % 0.9 % (0.0-5.0); HEMATOCRIT. 27.1 % (42.0-52.0); HEMOGLOBIN. 8.4 g/dL (14.0-18.0); LYMPHOCYTES % 29.2 % (20.0-50.0); MEAN CORPUSCULAR VOLUME 77.4 fL (80.0-94.0); MEAN PLATELET VOLUME 7.6 fl (7.4-10.4); MONOCYTES % 14.7 % (2.0-8.0); NEUTROPHILS % 54.8 % (40.0-76.0); PLATELET 58 x1000/uL (130-400); RED CELL DISTRIBUTION WIDTH 19.7 % (11.6-14.6)
[2020-09-27 21:23] LABS: CHLORIDE 100 mEq/L (98-107)
[2020-09-27 21:34] LABS: ETHANOL BLOOD 287 mg/dL
[2020-09-27] MEDS ORDERED: POTASSIUM CHLORIDE 20MEQ TABLET SR PO ONE (22:15)
[2020-09-27] MEDS ORDERED: KETOROLAC 15MG/ML VIAL IV ONE (22:30)
[2020-09-28 02:24] VITALS: BP 112/67
[2020-09-28 02:53] LABS: CLARITY URINE CLEAR (CLEAR); COLOR URINE YELLOW (YELLOW); KETONES URINE NEGATIVE (NEGATIVE); LEUKOCYTE ESTERASE URINE NEGATIVE (NEGATIVE); NITRITE URINE NEGATIVE (NEGATIVE); OCCULT BLOOD URINE NEGATIVE (NEGATIVE); PH URINE 5.5 (4.5-8.0); PROTEIN URINE NEGATIVE (NEGATIVE); SPECIFIC GRAVITY URINE 1.005 (1.005-1.030); UROBILINOGEN URINE 0.2 E.U./dL (0.2-1.0)
[2020-09-28 03:08] LABS: *AMPHETAMINES SCREEN URINE NEGATIVE (NEGATIVE); *BARBITURATES SCREEN URINE NEGATIVE (NEGATIVE); *BENZODIAZEPINES SCREEN URINE PRESUMTIVE POSITIVE (NEGATIVE); *COCAINE SCREEN URINE NEGATIVE (NEGATIVE); METHADONE URINE SCREEN NEGATIVE (NEGATIVE); OPIATES URINE SCREEN NEGATIVE (NEGATIVE)
[2020-09-28 03:09] LABS: CANNABINOID URINE SCREEN NEGATIVE (NEGATIVE); PHENCYCLIDINE URINE SCREEN NEGATIVE (NEGATIVE)
== END 2020-09-28 03:32 | disposition home or self-care (01) ==
LOC: ER 20:16
DX: F10.229 Alcohol dependence with intoxication, unspecified (principal); I95.9 Hypotension, unspecified; I10 Essential (primary) hypertension; Y90.8 Blood alcohol level of 240 mg/100 ml or more; Z87.19 Personal history of other diseases of the digestive system
CPT/HCPCS: 36415; 71045; 80053; 80305; 80320; 81003; 85025; 87086; 93005; 96361; 96374; 99285; J1885; J7030; Z7610; G0480

== ENCOUNTER 2020-09-29 16:49 | Emergency (ER) | payer MEDICAID ==
[~2020-09-29] VITALS: Ht 175.3 cm; Wt 92.0 kg
[2020-09-29 16:50] VITALS: BP 140/96
== END 2020-09-29 20:53 | disposition left against medical advice (07) ==
LOC: ER 16:54
DX: R10.9 Unspecified abdominal pain (principal); Z53.21 Procedure and treatment not carried out due to patient leaving prior to being seen by health care provider

== ENCOUNTER 2020-10-29 20:54 | Emergency (ER) | payer MEDICAID ==
[~2020-10-29] VITALS: Ht 180.3 cm; Wt 83.0 kg
[2020-10-29 20:56] VITALS: BP 142/80
[2020-10-29] MEDS ORDERED: DICYCLOMINE 10 MG/5 ML ORAL SYR PO STA (21:07)
[2020-10-29] MEDS ORDERED: MAGNESIUM/ALUMINUM HYDROXIDE/SIMETHICONE 30ML UDC PO STA (21:07)
[2020-10-29 21:33] LABS: BASOPHILS % 0.5 % (0.0-2.0); EOSINOPHILS % 1.1 % (0.0-5.0); HEMATOCRIT. 31.3 % (42.0-52.0); HEMOGLOBIN. 9.7 g/dL (14.0-18.0); LYMPHOCYTES % 40.8 % (20.0-50.0); MEAN CORPUSCULAR HEMOGLOBIN 22.6 pg (28.0-32.0); MEAN CORPUSCULAR VOLUME 72.7 fL (80.0-94.0); MEAN PLATELET VOLUME 6.3 fl (7.4-10.4); MONOCYTES % 9.8 % (2.0-8.0); NEUTROPHILS % 47.8 % (40.0-76.0); PLATELET 166 x1000/uL (130-400)
[2020-10-29 21:37] LABS: CHLORIDE 107 mEq/L (98-107)
[2020-10-29] MEDS ORDERED: CHLORDIAZEPOXIDE 25MG CAPSULE PO ONE (22:15)
[2020-10-29] MEDS ORDERED: CHLORDIAZEPOXIDE 5 MG CAPSULE PO NR (22:30)
== END 2020-10-30 00:53 | disposition home or self-care (01) ==
LOC: ER 20:54
DX: T51.91XA Toxic effect of unspecified alcohol, accidental (unintentional), initial encounter (principal); R10.9 Unspecified abdominal pain; I10 Essential (primary) hypertension; E11.9 Type 2 diabetes mellitus without complications; Y90.8 Blood alcohol level of 240 mg/100 ml or more
CPT/HCPCS: 36415; 71045; 80053; 80320; 85025; 99284; G0480

== ENCOUNTER 2020-11-30 16:28 | Emergency (ER) | payer MEDICAID ==
[~2020-11-30] VITALS: Ht 170.2 cm; Wt 91.0 kg
[2020-11-30 16:37] VITALS: BP 133/73
== END 2020-11-30 21:33 | disposition left against medical advice (07) ==
LOC: ER 17:01
DX: Z53.21 Procedure and treatment not carried out due to patient leaving prior to being seen by health care provider (principal)